=== PATIENT | male | born 1955 | race Caucasian/White ===

== ENCOUNTER → 2017-12-24 08:12 | Outpatient (CLI) | payer MEDICARE, MEDICAID, SELFPAY ==
--- NOTE | 2017-12-24 | DI.CT.S_ITS ---
PROCEDURE: CT ABDOMEN PELVIS WO/W CON INDICATIONS: Microhematuria with upper right abdominal pains TECHNIQUE: Optional 5 mm thick noncontrast images acquired from the diaphragm to the symphysis pubis. After the administration of intravenous contrast, 5 mm thick images acquired from the diaphragm to the symphysis pubis after a 10-minute delay. 2 mm thick coronal and sagittal reformats were then performed of the kidneys and ureters. For radiation dose reduction, the following was used: automated exposure control, adjustment of mA and/or kV according to patient size. COMPARISON: None. FINDINGS: Image quality: Excellent. Lung bases: There is a small 5 mm right lower lobe pulmonary nodule. Heart size is normal. Urinary system: Both kidneys are normal in size, without hydronephrosis or nephrolithiasis. There is minimal nonspecific perinephric fat stranding. A small right renal cyst is demonstrated as well as additional smaller hypoattenuating foci likely representing cysts. There is normal bilateral renal enhancement. Renal calyces appear normal in morphology when filled with contrast without suspicious filling defects. Opacified portions of both ureters demonstrate normal caliber. Bladder wall thickness is normal. No calcified bladder stones. Other solid organs: The liver is nodular in contour compatible with cirrhosis. No discrete hepatic mass lesion identified. There is a prominent calcified gallstone in the gallbladder without associated gallbladder wall thickening or pericholecystic fluid. Biliary system is non dilated. Pancreas enhances normally. Spleen is normal in size and enhancement. There is nodular thickening of the left adrenal gland measuring up to 1.2 cm with indeterminate attenuation values. Peritoneum and bowel: Bowel loops demonstrate normal wall thickness and caliber. There is colonic diverticulosis without acute diverticulitis. No free fluid or air. Nodes and vessels: No retroperitoneal or mesenteric adenopathy by size criteria. Aorta and inferior vena cava are normal in size. Abdominal wall: No ventral hernias. Pelvis: No pathologic free pelvic fluid. No inguinal hernias or adenopathy. Bones: No suspicious bony lesions. There is moderate degenerative disease at L5-S1. No vertebral body compression fractures. IMPRESSION: 1. No evidence of nephrolithiasis or suspicious filling defects within the renal collecting systems. No hydronephrosis. 2. Nodular hepatic contour compatible with cirrhosis. 3. Cholelithiasis. 4. Nonspecific mild nodular thickening of the left adrenal gland. Dictated by: Shukri Renner M.D. on 12/24/2017 at 14:47 Approved by: Suhkri Renner M.D. on 12/24/2017 at 14:56
[2017-12-24 08:54] LABS: BUN Creatinine Ratio 17.5 (6-22); Blood Urea Nitrogen 14 mg/dL (9-20); Calcium 8.5 mg/dL (8.4-10.2); Carbon Dioxide 28 mmol/L (22-32); Chloride 105 mmol/L (98-107); Estimated Glomerular Filt Rate > 60.0 mL/min (>60); Glucose 117 mg/dL (80-110); HEMOLYSIS 16 (0-50); Potassium 4.1 mmol/L (3.4-5.1); Sodium 142 mmol/L (137-145)
== END ==
PROVIDERS: Family Provider Family Medicine; PCP Family Medicine; Visit Provider Family Medicine
DX: R31.29 Other microscopic hematuria (principal); R10.11 Right upper quadrant pain; I10 Essential (primary) hypertension; K80.80 Other cholelithiasis without obstruction; K76.9 Liver disease, unspecified; E27.9 Disorder of adrenal gland, unspecified
CPT/HCPCS: 36415; 74178; 80048; Q9967

== ENCOUNTER 2018-12-17 14:50 | Inpatient (IN) | payer MEDICARE, MEDICAID, SELFPAY ==
[2018-12-17] VITALS (7 sets, daily range): BP systolic 139–193; BP diastolic 87–116; PULSE 75–117; RESP 18–26; TEMP 36.7; O2SAT 96–99; BMI 40.0
--- NOTE | 2018-12-17 15:21 | DI.RAD.S_ITS ---
PROCEDURE: XR CHEST 2V INDICATIONS: shortness of breath TECHNIQUE: 2 views of the chest were acquired. COMPARISON: [facility], , CHEST 1 VIEW, 08/11/2014, 17:00. FINDINGS: Surgical changes and devices: None. Lungs and pleura: Prominent pulmonary vascular markings are identified with perihilar interstitial prominence. No definite area of pulmonary consolidation is identified. No pleural effusions or pneumothorax. Mediastinum: Mediastinal contours are normal. Heart size is enlarged. There is aortic atherosclerosis. Bones and chest wall: No suspicious bony abnormalities. Soft tissues appear unremarkable. IMPRESSION: Cardiomegaly with associated pulmonary vasculature congestion is suspicious for developing cardiogenic pulmonary edema. Dictated by: Migue Munoz M.D. on 12/17/2018 at 15:07 Approved by: Migue Munoz M.D. on 12/17/2018 at 15:07
[2018-12-17 15:25] LABS: Add Manual Diff / Slide Review NO; Basophils Absolute Auto 100 /uL (0-100); Basophils Percent Auto 0.5 % (0-2); Eosinophils Absolute Auto 200 /uL (0-450); Eosinophils Percent Auto 2.4 % (2-4); Hematocrit 37.7 % (41-53); Lymphocytes Absolute Auto 3500 /uL (1100-4500); Lymphocytes Percent Auto 34.9 % (25-40); Mean Corpuscular HGB Conc 34.4 % (30-36); Mean Corpuscular Hemoglobin 34.6 PG (26-34); Mean Corpuscular Volume 100.5 fL (80-100); Monocytes Absolute Auto 1500 /uL (0-900); Monocytes Percent Auto 15.2 % (3-14); Neutrophils Absolute Auto 4800 /uL (1500-7000); Platelet Count 177 X10^3/uL (150-400); Red Blood Cell Count 3.75 X10^6/uL (4.5-5.9); Red Cell Distribution Width 15.2 % (11.6-14.8); White Blood Cell Count 10.2 X10^3/uL (4.5-11.0)
[2018-12-17 15:34] LABS: Alanine Aminotransferase 35 IU/L (<50); Albumin Globulin Ratio 0.6 (1.0-2.8); Alkaline Phosphatase 171 U/L (38-126); Aspartate Aminotransferase 77 IU/L (17-59); Bilirubin Total 2.1 mg/dL (0.2-1.3); Blood Urea Nitrogen 7 mg/dL (9-20); Calcium 8.2 mg/dL (8.4-10.2); Carbon Dioxide 28 mmol/L (22-32); Chloride 105 mmol/L (98-107); Estimated Glomerular Filt Rate > 60.0 mL/min (>60); Globulin 4.8 g/dL (1.7-4.1); Glucose 100 mg/dL (80-110); HEMOLYSIS < 15 (0-50); Potassium 3.6 mmol/L (3.4-5.1); Sodium 136 mmol/L (137-145); Total Protein 7.8 g/dL (6.3-8.2)
--- NOTE | 2018-12-17 15:44 | ED.SOB ---
HPI - SOB/Dyspnea General Chief Complaint: Shortness of Breath/Dyspnea Stated Complaint: difficulty breathing, bloated, swollen legs Time Seen by Provider: 12/17/18 15:14 Source: patient Mode of arrival: Wheelchair Limitations: no limitations History of Present Illness HPI Narrative: This is a 63-year-old male who comes to the emergency department with complaint of shortness of breath and swelling in his legs and abdomen. Patient states it seemed like his leg started 1st and then he developed abdominal swelling which she states is pretty extensive. He states his belly button has also been ?popped out? for several weeks. Patient states he has had infections in his legs and been on antibiotics which made the swelling better. He states the swelling in his legs is not as bad as it has been in the past. He states maybe he has had some fevers or chills but states they are mild. He does not feel short of breath when sitting still but on exertion gets quite dyspneic. He states possibly a little bit of chest 2 weeks. He describes them as short seconds of chest pain that resolves that sort of epigastric right upper quadrant in nature. Patient states that he has had some right rib pain but states he has had multiple episodes where he has fallen. He denies any abdominal pain. He denies any weeping in his lower extremities. He states he takes lisinopril, metoprolol, he was taking aspirin daily but lately has not been. He states he has been told he has gallstones in the past. Denies any prior surgery. When asked if he has had ascites he states that he has and this is why he decreased his alcohol intake. He smokes about half pack per day, occasionally drinks beer but states not every day. Marijuana but denies other illicit. He lives on [address] follows with the clinic on [address]. Related Data Home Medications Medication Instructions Recorded Confirmed bupropion HCl 100 mg PO DAILY 12/17/18 12/17/18 duloxetine 30 mg PO DAILY 12/17/18 12/17/18 lisinopril 40 mg PO DAILY 12/17/18 12/17/18 metoprolol succinate 100 mg PO DAILY 12/17/18 12/17/18 topiramate 25 mg PO BID 12/17/18 12/17/18 verapamil 120 mg PO DAILY 12/17/18 12/17/18 Previous Rx's Medication Instructions Recorded gabapentin [Neurontin] 300 mg PO BID #180 cap 04/28/16 isosorbide mononitrate 30 mg PO QAM #90 tab 04/28/16 Allergies Allergy/AdvReac Type Severity Reaction Status Date / Time No Known Drug Allergies Allergy Verified 12/17/18 15:20 Review of Systems Review of Systems ROS Unobtainable: All systems reviewed & are unremarkable except as noted in HPI and below Constitutional Constitutional: Denies body ache(s), Denies chills, Denies fever(s), Denies lethargy and Denies weakness Cardiovascular Cardiovascular: Reports chest pain, Denies syncope, Denies rapid heart rate, Reports edema (lower extremities), Denies irregular heart rhythm, Denies leg ulcers, Reports leg edema, Denies lightheadedness, Denies palpitations, Denies dyspnea, Reports dyspnea on exertion and Denies orthopnea Respiratory Respiratory: Denies change in phlegm color, Denies chest congestion, Denies cough, Denies dyspnea, Reports dyspnea on exertion and Denies wheezing Gastrointestinal Gastrointestinal: Denies abdominal pain, Denies melena, Denies hematochezia, Denies change in bowel habits, Denies diarrhea, Denies nausea, Denies vomiting and Reports other (distended.) Genitourinary Genitourinary: Denies hematuria, Denies difficulty urinating, Denies dysuria, Denies flank pain, Denies urinary frequency, Denies urinary incontinence and Denies urinary urgency Integumentary/Breasts Skin/Breast: Reports erythema (right leg, not as bad as usual.) Neurologic Neurologic: Denies syncope and Denies weakness Endocrine Endocrine: Denies palpitations Allergic/Immunologic Allergic/Immunologic: Denies wheezing Patient History Medical History (Updated 12/17/18 @ 21:46 by ANDREW Ramos) Alcohol abuse (Chronic 03/02/15) Ascites (Acute) Essential hypertension (Chronic 03/02/15) Fluid overload (Acute) Tobacco abuse (Chronic 03/02/15) Social History household members: none Smoking Status: Current some day smoker alcohol intake frequency: holidays/special occasions only Substance Use Type: marijuana Exam Narrative Exam Narrative: GENERAL: Alert and oriented x three, obese male smelling strongly of cigarette smoke. Patient is in mild distress. HEENT: Head normocephalic, atraumatic, EOMI, pupils reactive, face symmetric, moist mucous membranes NECK: Supple, full range of motion CARDIOVASCULAR: Regular rate and rhythm without murmurs, rubs or gallops. RESPIRATORY: Breath sounds equal bilaterally, no wheezes rales or rhonchi. ABDOMEN: Abdomen is nontender. Patient is distended but soft with umbilical hernia/umbilicus external, it is soft, non-tender and easily reducible, no caput noted. Normoactive bowel sounds all 4 quadrants. No guarding or rebound, rigidity, no mass : No CVA tenderness EXTREMITIES: Normal range of motion, patient has 2+ edema bilteral lower extremities. No weeping. Neurovascularly intact NEUROLOGICAL: Cranial nerves II through XII grossly intact. Moving all extremities SKIN: Warm, dry, no petechiae, patient has erythema of right lower extremity extending from the foot/ankle up to thigh. No erythema extending into the right groin or abdomen. Initial Vital Signs Initial Vital Signs: Vital Signs Pulse Rate 117 H 12/17/18 14:50 Respiratory Rate 26 H 12/17/18 14:50 Blood Pressure 193/105 H 12/17/18 14:50 Pulse Oximetry 97 12/17/18 14:50 Course Orders Ordered: Enoxaparin Sodium (Lovenox) 40 mg SUBCUT DAILY [facility] Furosemide (Lasix) 40 mg IV DAILY ONE Stop: 12/18/18 09:01 Isosorbide Mononitrate (Imdur) 30 mg PO DAILY@0700 [facility] Last Admin: 12/18/18 06:59 Dose: 30 mg Documented by: TRACY Lisinopril (Zestril) 40 mg PO DAILY [facility] Metoprolol Succinate (Toprol Xl) 100 mg PO DAILY [facility] Ondansetron HCl (Zofran) 4 mg IV Q8HR PRN PRN Reason: Nausea And Vomiting Sodium Chloride (Normal Saline 0.9% Flush) 10 ml IV PRN PRN PRN Reason: Flush Last Admin: 12/18/18 04:14 Dose: 10 ml Documented by: TRACY Sodium Chloride (Normal Saline 0.9% Flush) 10 ml IV BID [facility] Verapamil HCl (Verapamil Er) 120 mg PO DAILY [facility] Discontinued Medications Furosemide (Lasix) 40 mg IV NOW ONE Stop: 12/17/18 16:03 Last Admin: 12/17/18 16:10 Dose: 40 mg Documented by: CRISTINA Lisinopril (Zestril) 40 mg PO NOW ONE Stop: 12/17/18 18:23 Last Admin: 12/17/18 18:47 Dose: 40 mg Documented by: CRISTINA Metoprolol Tartrate (Lopressor) 100 mg PO NOW ONE Stop: 12/17/18 18:23 Last Admin: 12/17/18 18:48 Dose: 100 mg Documented by: CRISTINA Nitroglycerin (Nitro-Bid) 0.5 inch TOP NOW ONE Stop: 12/17/18 16:03 Last Admin: 12/17/18 16:10 Dose: 0.5 inch Documented by: CRISTINA Vital Signs Vital signs: Vital Signs - 8 hr 12/17/18 14:50 12/17/18 16:10 12/17/18 16:32 Pulse Rate 117 H 105 H 105 H Respiratory Rate 26 H 22 Blood Pressure 193/105 H 186/113 H Blood Pressure [Right Arm] 139/116 H Pulse Oximetry 97 99 12/17/18 18:14 Pulse Rate 106 H Respiratory Rate 23 Blood Pressure Blood Pressure [Right Arm] 179/106 H Pulse Oximetry 96 MDM - SOB/Dyspnea Lab Data Attestation: I reviewed the patient's lab results. Result diagrams: 12/18/18 06:13 12/18/18 06:13 Labs: Lab Results 12/17/18 12/17/18 12/17/18 Range/Units 15:00 15:00 15:00 WBC 10.2 (4.5-11.0) X10^3/uL RBC 3.75 L (4.5-5.9) X10^6/uL Hgb 13.0 L (13.5-17.5) g/dL Hct 37.7 L (41-53) % MCV 100.5 H (80-100) fL MCH 34.6 H (26-34) PG MCHC 34.4 (30-36) % RDW 15.2 H (11.6-14.8) % Plt Count 177 (150-400) X10^3/uL Neut % (Auto) 47.0 L (50-75) % Lymph % (Auto) 34.9 (25-40) % Dougherty % (Auto) 15.2 H (3-14) % Eos % (Auto) 2.4 (2-4) % Baso % (Auto) 0.5 (0-2) % Neut # (Auto) 4800 (5257-7421) /uL Lymph # (Auto) 3500 (6644-6862) /uL Dougherty # (Auto) 1500 H (0-900) /uL Eos # (Auto) 200 (0-450) /uL Baso # (Auto) 100 (0-100) /uL Sodium 136 L (137-145) mmol/L Potassium 3.6 (3.4-5.1) mmol/L Chloride 105 (98-107) mmol/L Carbon Dioxide 28 (22-32) mmol/L BUN 7 L (9-20) mg/dL Creatinine 0.70 (0.66-1.25) mg/dL Estimated GFR > 60.0 (>60) mL/min BUN/Creatinine Ratio 10.0 (6-22) Glucose 100 (80-110) mg/dL Hemoglobin A1c (4.0-6.0) % Calcium 8.2 L (8.4-10.2) mg/dL Total Bilirubin 2.1 H (0.2-1.3) mg/dL AST 77 H (17-59) IU/L ALT 35 (<50) IU/L Alkaline Phosphatase 171 H (38-126) U/L Ammonia (9-30) umol/L Total Creatine Kinase 99 (55-170) U/L CK-MB (CK-2) TNP CK-MB (CK-2) Rel Index TNP Troponin I 0.025 (0.01-0.034) ng/mL B-Natriuretic Peptide (<100) Total Protein 7.8 (6.3-8.2) g/dL Albumin 3.0 L (3.5-5.0) g/dL Globulin 4.8 H (1.7-4.1) g/dL Albumin/Globulin Ratio 0.6 L (1.0-2.8) Lipase (23-300) U/L Procalcitonin (<0.5) ng/mL 12/17/18 12/17/18 12/17/18 Range/Units 15:00 15:00 15:00 WBC (4.5-11.0) X10^3/uL RBC (4.5-5.9) X10^6/uL Hgb (13.5-17.5) g/dL Hct (41-53) % MCV (80-100) fL MCH (26-34) PG MCHC (30-36) % RDW (11.6-14.8) % Plt Count (150-400) X10^3/uL Neut % (Auto) (50-75) % Lymph % (Auto) (25-40) % Dougherty % (Auto) (3-14) % Eos % (Auto) (2-4) % Baso % (Auto) (0-2) % Neut # (Auto) (5731-5834) /uL Lymph # (Auto) (7568-4824) /uL Dougherty # (Auto) (0-900) /uL Eos # (Auto) (0-450) /uL Baso # (Auto) (0-100) /uL Sodium (137-145) mmol/L Potassium (3.4-5.1) mmol/L Chloride (98-107) mmol/L Carbon Dioxide (22-32) mmol/L BUN (9-20) mg/dL Creatinine (0.66-1.25) mg/dL Estimated GFR (>60) mL/min BUN/Creatinine Ratio (6-22) Glucose (80-110) mg/dL Hemoglobin A1c (4.0-6.0) % Calcium (8.4-10.2) mg/dL Total Bilirubin (0.2-1.3) mg/dL AST (17-59) IU/L ALT (<50) IU/L Alkaline Phosphatase (38-126) U/L Ammonia (9-30) umol/L Total Creatine Kinase (55-170) U/L CK-MB (CK-2) CK-MB (CK-2) Rel Index Troponin I (0.01-0.034) ng/mL B-Natriuretic Peptide < 100 (<100) Total Protein (6.3-8.2) g/dL Albumin (3.5-5.0) g/dL Globulin (1.7-4.1) g/dL Albumin/Globulin Ratio (1.0-2.8) Lipase 145 (23-300) U/L Procalcitonin < 0.05 (<0.5) ng/mL 12/17/18 12/17/18 Range/Units 16:23 17:00 WBC (4.5-11.0) X10^3/uL RBC (4.5-5.9) X10^6/uL Hgb (13.5-17.5) g/dL Hct (41-53) % MCV (80-100) fL MCH (26-34) PG MCHC (30-36) % RDW (11.6-14.8) % Plt Count (150-400) X10^3/uL Neut % (Auto) (50-75) % Lymph % (Auto) (25-40) % Dougherty % (Auto) (3-14) % Eos % (Auto) (2-4) % Baso % (Auto) (0-2) % Neut # (Auto) (1911-8495) /uL Lymph # (Auto) (0001-4098) /uL Dougherty # (Auto) (0-900) /uL Eos # (Auto) (0-450) /uL Baso # (Auto) (0-100) /uL Sodium (137-145) mmol/L Potassium (3.4-5.1) mmol/L Chloride (98-107) mmol/L Carbon Dioxide (22-32) mmol/L BUN (9-20) mg/dL Creatinine (0.66-1.25) mg/dL Estimated GFR (>60) mL/min BUN/Creatinine Ratio (6-22) Glucose (80-110) mg/dL Hemoglobin A1c 4.7 (4.0-6.0) % Calcium (8.4-10.2) mg/dL Total Bilirubin (0.2-1.3) mg/dL AST (17-59) IU/L ALT (<50) IU/L Alkaline Phosphatase (38-126) U/L Ammonia < 9.0 L (9-30) umol/L Total Creatine Kinase (55-170) U/L CK-MB (CK-2) CK-MB (CK-2) Rel Index Troponin I (0.01-0.034) ng/mL B-Natriuretic Peptide (<100) Total Protein (6.3-8.2) g/dL Albumin (3.5-5.0) g/dL Globulin (1.7-4.1) g/dL Albumin/Globulin Ratio (1.0-2.8) Lipase (23-300) U/L Procalcitonin (<0.5) ng/mL Imaging Data Chest x-ray: Radiologist's impression: [address] [id number] XRay Report Signed Patient: Beto Cruz CMR#: [id number] : 4Acct:[id number] Age/Sex: 63 / MDate of Service: 12/17/18 Loc: ED Accession Number: [id number] Procedure: XR chest 2V Ordering Provider: Ngoc Hopper D.O. PROCEDURE: XR CHEST 2V INDICATIONS: shortness of breath TECHNIQUE: 2 views of the chest were acquired. COMPARISON: [facility], CR, CHEST 1 VIEW, 08/11/2014, 17:00. FINDINGS: Surgical changes and devices: None. Lungs and pleura: Prominent pulmonary vascular markings are identified with perihilar interstitial prominence. No definite area of pulmonary consolidation is identified. No pleural effusions or pneumothorax. Mediastinum: Mediastinal contours are normal. Heart size is enlarged. There is aortic atherosclerosis. Bones and chest wall: No suspicious bony abnormalities. Soft tissues appear unremarkable. IMPRESSION: Cardiomegaly with associated pulmonary vasculature congestion is suspicious for developing cardiogenic pulmonary edema. Dictated by: Migue Munoz M.D. on 12/17/2018 at 15:07 Approved by: Migue Munoz M.D. on 12/17/2018 at 15:07 US - abdomen: Radiologist's impression: [address] [id number] Ultrasound Report Signed Patient: Beto Cruz CMR#: [id number] : 4Acct:[id number] Age/Sex: 63 / MDate of Service: 12/17/18 Loc: ED Accession Number: [id number] Procedure: US abdomen limited Ordering Provider: Ngoc Hopper D.O. PROCEDURE: US ABDOMEN LIMITED INDICATIONS: ABDOMINAL/LOWER EXTREMITY SWELLING, ?ASCITES TECHNIQUE: Real-time focused scanning was performed of the abdomen, with image documentation. COMPARISON: [facility], CT, CT ABDOMEN PELVIS WO/W CON, 12/24/2017, 9:03. FINDINGS: There is a moderate amount of upper abdominal ascites, best appreciated within the region of the liver. The liver and spleen appear to be mildly enlarged. IMPRESSION: Moderate abdominal ascites. Dictated by: Migue Munoz M.D. on 12/17/2018 at 15:57 Approved by: Migue Munoz M.D. on 12/17/2018 at 15:57 ECG Data Attestation: I personally reviewed and interpreted this ECG as follows: Prior ECG tracings: available for review Interpretation: Sinus tachycardia rate of 112 P are 161 QRS of 91 and QTC of 407. No ST elevation or depression appreciated. MDM Narrative Medical decision making narrative: Patient comes in with bilateral lower extremity swelling, redness in his right lower extremity low does not warm. Patient also has extensive swelling of his abdomen with his umbilicus protruding secondary to fluid overload/ascites. Patient fluid overload may have fluid overload secondary to CHF althought bnp is less than 100 although CXR shows some pulm edema and cardiomegaly. Patient does have moderate ascites on US but less than I would expect based on habitus. Right leg has erythema but patient has been afebrile, procalcitonin is negative with normal wbc. Patient states he still drinks alcohol but decreased his intake secondary to liver issues, patient does not appear in extremis. Started on lasix, nitropaste placed as patient is quite hypertensive. Case discussed with Dr. Madden, she requests patient to be given normal lisinopril and metoprolol dose, accepts for observation. Discharge Plan Departure Patient Disposition: Admitted as Observation Clinical Impression: Ascites, Fluid overload Discharge Date/Time: 12/17/18 19:24 Admit Date/Time: 12/17/18 18:30 Admit Provider: Fadia Madden
--- NOTE | 2018-12-17 16:08 | DI.US.S_ITS ---
PROCEDURE: US ABDOMEN LIMITED INDICATIONS: ABDOMINAL/LOWER EXTREMITY SWELLING, ?ASCITES TECHNIQUE: Real-time focused scanning was performed of the abdomen, with image documentation. COMPARISON: [facility], CT, CT ABDOMEN PELVIS WO/W DIDI, 12/24/2017, 9:03. FINDINGS: There is a moderate amount of upper abdominal ascites, best appreciated within the region of the liver. The liver and spleen appear to be mildly enlarged. IMPRESSION: Moderate abdominal ascites. Dictated by: Migue Munoz M.D. on 12/17/2018 at 15:57 Approved by: Migue Munoz M.D. on 12/17/2018 at 15:57
[2018-12-17] MEDS: NITROGLYCERIN OINT 1 INCH/GM OINT...G. 0.5 INCH TOP (16:10)
[2018-12-17] MEDS: FUROSEMIDE 40 MG/4 ML VIAL IV (16:10)
[2018-12-17 16:16] LABS: Creatine Kinase 99 U/L (55-170)
--- NOTE | 2018-12-17 16:23 | PC.NURSE ---
reports that he stopped taking his medications since they made him feel bad. states that his abdomen has become recently swollen and his belly button is popping out. reports that he is retaining fluid in his lower extremities. lower extremities are swollen and red.
[2018-12-17 16:29] LABS: Troponin I 0.025 ng/mL (0.01-0.034)
[2018-12-17 16:33] LABS: B Type Natriuretic Peptide < 100 (<100)
[2018-12-17 16:49] LABS: Ammonia (NH3) < 9.0 umol/L (9-30)
[2018-12-17 16:51] LABS: Procalcitonin < 0.05 ng/mL (<0.5)
[2018-12-17] MEDS: LISINOPRIL 20 MG TABLET 40 MG PO (18:47)
[2018-12-17] MEDS: METOPROLOL IR 25 MG TABLET 100 MG PO (18:48)
[2018-12-17 21:07] LABS: Lipase 145 U/L (23-300)
--- NOTE | 2018-12-17 21:09 | P.HP_ITS ---
History of Present Illness History of Present Illness Date Patient Seen: 12/17/18 Time Patient Seen: 20:30 Chief complaint: difficulty breathing, bloated, swollen legs Narrative: Beto Cruz is a 63 y.o. male with hypertension and what appears to be depression presented today for increased abdominal girth and shortness of breath. He is suspected of having liver ascites. Patient is a vague historian and per the ED and in my questioning does not remember if he is taking his medications. Stated his stomach blew up on Thursday of this week and that his umbilicus popped out. Describes having right sided intermittent needle like pain in his right chest which has since resolved. Endorses a history of strokes in the past that he was never seen for and informed the ED that he has never been told he has gall bladder disease. Denies current shortness of breath, abdominal pain, nausea or vomiting, dyurea or diarrhea. He states some of his medications cause constipation. He also endorses bilateral feet pain and swelling. Patient goes to the clinic on [address] and does not recall seeing anyone regularly there. Patient History Medical History (Updated 12/17/18 @ 21:46 by ANDREW Ramos) Alcohol abuse (Chronic 03/02/15) Ascites (Acute) Essential hypertension (Chronic 03/02/15) Fluid overload (Acute) Tobacco abuse (Chronic 03/02/15) Family & Social History Social History: household members none Prior Living Arrangements RV Safety & Behavioral: Feels Safe in Current Yes Environment Been Physically Hurt or No Threatened By a Person Suicidal Ideation Description None Tobacco & Substance use: Smoking Status 0.5 ppd smoker alcohol intake frequency holiday/special occasion Substance Use Type marijuana Meds Home Medications and Allergies Home Medications Medication Instructions Recorded Confirmed Type gabapentin [Neurontin] 300 mg PO BID #180 cap 04/28/16 12/17/18 Rx isosorbide mononitrate 30 mg PO QAM #90 tab 04/28/16 12/17/18 Rx bupropion HCl 100 mg PO DAILY 12/17/18 12/17/18 History duloxetine 30 mg PO DAILY 12/17/18 12/17/18 History lisinopril 40 mg PO DAILY 12/17/18 12/17/18 History metoprolol succinate 100 mg PO DAILY 12/17/18 12/17/18 History topiramate 25 mg PO BID 12/17/18 12/17/18 History verapamil 120 mg PO DAILY 12/17/18 12/17/18 History Allergies Allergy/AdvReac Type Severity Reaction Status Date / Time No Known Drug Allergies Allergy Verified 12/17/18 15:20 Review of Systems Review of Systems ROS Unobtainable: All systems reviewed & are unremarkable except as noted in HPI and below Exam Vital Signs (past 8 hours): - 12/17/18 14:50 12/17/18 16:10 12/17/18 16:32 Temperature Pulse Rate 117 H 105 H 105 H Respiratory Rate 26 H 22 Blood Pressure 193/105 H 186/113 H Blood Pressure [Right Arm] 139/116 H Pulse Oximetry 97 99 12/17/18 18:14 12/17/18 18:32 12/17/18 18:47 Temperature Pulse Rate 106 H 106 H 105 H Respiratory Rate 23 23 Blood Pressure 163/90 H Blood Pressure [Right Arm] 179/106 H 163/90 H Pulse Oximetry 96 96 12/17/18 19:30 Temperature 98.1 F Pulse Rate 75 Respiratory Rate 18 Blood Pressure 147/87 H Blood Pressure [Right Arm] Pulse Oximetry 97 Oxygen Delivery Method Room Air Narrative Exam Narrative: Gen: Alert, oriented, obese 63 y.o. male, appears ill HEENT: normocephalic, atraumatic, conjunctiva clear, scleral icteris, oral mucosa pink and moist Neck: supple, full ROM Resp: Lungs CTA, non-labored breathing CV: RRR, no murmur or rubs Abd: distended, hard, hypoactive BTs, non-tender Skin: +2 edema of the lower extremities, no lesions or rashes, dry and intact Neuro: Alert and oriented X 4 w/no focal deficits Extremities: moves all 4 extremities, is ambulatory, negative Jesi?s sign Psyche: normal mood and affect Objective Labs Result Diagrams: 12/17/18 15:00 12/17/18 15:00 Labs: Laboratory Results - last 24 hr 12/17/18 12/17/18 12/17/18 15:00 15:00 15:00 WBC 10.2 RBC 3.75 L Hgb 13.0 L Hct 37.7 L MCV 100.5 H MCH 34.6 H MCHC 34.4 RDW 15.2 H Plt Count 177 Neut % (Auto) 47.0 L Lymph % (Auto) 34.9 [place] % (Auto) 15.2 H Eos % (Auto) 2.4 Baso % (Auto) 0.5 Neut # (Auto) 4800 Lymph # (Auto) 3500 [place] # (Auto) 1500 H Eos # (Auto) 200 Baso # (Auto) 100 Sodium 136 L Potassium 3.6 Chloride 105 Carbon Dioxide 28 BUN 7 L Creatinine 0.70 Estimated GFR > 60.0 BUN/Creatinine Ratio 10.0 Glucose 100 Calcium 8.2 L Total Bilirubin 2.1 H AST 77 H ALT 35 Alkaline Phosphatase 171 H Ammonia Total Creatine Kinase 99 CK-MB (CK-2) TNP CK-MB (CK-2) Rel Index TNP Troponin I 0.025 B-Natriuretic Peptide Total Protein 7.8 Albumin 3.0 L Globulin 4.8 H Albumin/Globulin Ratio 0.6 L Lipase Procalcitonin 12/17/18 12/17/18 12/17/18 15:00 15:00 15:00 WBC RBC Hgb Hct MCV MCH MCHC RDW Plt Count Neut % (Auto) Lymph % (Auto) [place] % (Auto) Eos % (Auto) Baso % (Auto) Neut # (Auto) Lymph # (Auto) [place] # (Auto) Eos # (Auto) Baso # (Auto) Sodium Potassium Chloride Carbon Dioxide BUN Creatinine Estimated GFR BUN/Creatinine Ratio Glucose Calcium Total Bilirubin AST ALT Alkaline Phosphatase Ammonia Total Creatine Kinase CK-MB (CK-2) CK-MB (CK-2) Rel Index Troponin I B-Natriuretic Peptide < 100 Total Protein Albumin Globulin Albumin/Globulin Ratio Lipase 145 Procalcitonin < 0.05 12/17/18 16:23 WBC RBC Hgb Hct MCV MCH MCHC RDW Plt Count Neut % (Auto) Lymph % (Auto) [place] % (Auto) Eos % (Auto) Baso % (Auto) Neut # (Auto) Lymph # (Auto) [place] # (Auto) Eos # (Auto) Baso # (Auto) Sodium Potassium Chloride Carbon Dioxide BUN Creatinine Estimated GFR BUN/Creatinine Ratio Glucose Calcium Total Bilirubin AST ALT Alkaline Phosphatase Ammonia < 9.0 L Total Creatine Kinase CK-MB (CK-2) CK-MB (CK-2) Rel Index Troponin I B-Natriuretic Peptide Total Protein Albumin Globulin Albumin/Globulin Ratio Lipase Procalcitonin Assessment & Plan Assessment & Plan narrative: Beto Nancy will be held in observation to further assess his abdominal ascites. 1. Abdominal ascites vs CHF, acute, present on admission * Consider US guided abdominal paracentesis * BNP was normal * ETOH level normal * Acute hepatitis panel pending * Holding gabapentin, buproprion, and duloxetine due to potential hepatotoxic effect 2. Bilateral LE edema, acute, present on admission * He received IV lasix in the ED * Scheduled for IV lasix 40 mg in the am 3. Essential hypertension, chronic and uncontrolled, present on admission * Home doses of isosorbide mononitrate 30 mg po daily, lisinopril 40 mg po daily, verapamil 120 mg po daily and metoprolol succinate 100 mg po daily were admistered in the ED and will be continued 3. History of hyperglycemia * Patient previously diagnosed w/diabetes, have ordered an A1c, last one done Patient is admitted obsevation as his stay is not anticipated to exceed 2 midnights. FEN: Saline lock, cardiac diet, CMP in the am. VTE Prophylaxis: Enoxaparin 40 mg subQ daily Disposition: Unknown at this time Code status: Full code Time Spent With Patient Time with patient: 15-24 minutes Quality VTE Deep Vein Thrombosis/Pulmonary Embolism Present on Admission: No
[2018-12-17 22:25] LABS: Hemoglobin A1C% w Est Avg Glu 4.7 % (4.0-6.0)
--- NOTE | 2018-12-17 23:41 | PC.NURSE ---
Evening Shift Note- Patient arrived to room from ER via wheelchair. Admit questions completed, meds reviewed, physical assessment done. Patient oriented to bed and bed controls, room, lights, phone, menu, and call horvath/tv remote. Safety measures in place. bed alarm activated. patient agrees to call for assistance as needed. will continue to monitor.
[2018-12-18] VITALS (10 sets, daily range): BP systolic 93–143; BP diastolic 50–73; PULSE 63–73; RESP 13–22; TEMP 36.2–37.3; O2SAT 91–97
[2018-12-18] MEDS: SODIUM CHLORIDE 0.9% FLUSH 10 ML IV ×4 (04:14→21:43)
[2018-12-18 06:48] LABS: Add Manual Diff / Slide Review NO; Basophils Absolute Auto 100 /uL (0-100); Basophils Percent Auto 1.3 % (0-2); Eosinophils Absolute Auto 500 /uL (0-450); Eosinophils Percent Auto 4.7 % (2-4); Hematocrit 34.1 % (41-53); Hemoglobin 11.7 g/dL (13.5-17.5); Lymphocytes Absolute Auto 4700 /uL (1100-4500); Lymphocytes Percent Auto 44.3 % (25-40); Mean Corpuscular HGB Conc 34.4 % (30-36); Mean Corpuscular Hemoglobin 34.7 PG (26-34); Mean Corpuscular Volume 100.7 fL (80-100); Monocytes Absolute Auto 1600 /uL (0-900); Monocytes Percent Auto 15.1 % (3-14); Neutrophils Absolute Auto 3700 /uL (1500-7000); Neutrophils Percent Auto 34.6 % (50-75); Platelet Count 161 X10^3/uL (150-400); Red Blood Cell Count 3.39 X10^6/uL (4.5-5.9); Red Cell Distribution Width 14.5 % (11.6-14.8); White Blood Cell Count 10.7 X10^3/uL (4.5-11.0)
[2018-12-18 06:54] LABS: INR 1.4 (0.9-1.3); Prothrombin Time 16.3 SECONDS (10.1-12.7)
[2018-12-18] MEDS: ISOSORBIDE MONONITRATE ER 30 MG TABLET PO (06:59)
[2018-12-18 07:02] LABS: Alanine Aminotransferase 27 IU/L (<50); Albumin 2.3 g/dL (3.5-5.0); Albumin Globulin Ratio 0.6 (1.0-2.8); Alkaline Phosphatase 111 U/L (38-126); Aspartate Aminotransferase 57 IU/L (17-59); Bilirubin Total 1.9 mg/dL (0.2-1.3); Blood Urea Nitrogen 9 mg/dL (9-20); Calcium 7.7 mg/dL (8.4-10.2); Carbon Dioxide 28 mmol/L (22-32); Chloride 105 mmol/L (98-107); Cholesterol 84 mg/dL (140-199); Estimated Glomerular Filt Rate > 60.0 mL/min (>60); Globulin 3.9 g/dL (1.7-4.1); Glucose 93 mg/dL (80-110); HDL Cholesterol 23 mg/dL (40-60); HEMOLYSIS < 15 (0-50); LDL Cholesterol Calculated 48 mg/dL (<100); Potassium 3.3 mmol/L (3.4-5.1); Sodium 137 mmol/L (137-145); Total Protein 6.2 g/dL (6.3-8.2); Triglycerides 64 mg/dL (35-150)
--- NOTE | 2018-12-18 07:19 | DI.ECHO.S_ITS ---
[facility]---------+ [facility] +---------+ : : [address] [place] : : : : [id number] : : : : Phone: [phone]+ Echocardiogram Report + + :Name: SUGAR ROBERTS Study Date: 12/18/2018 Height: 72 in : :[facility] Weight: 287 lb : : Gender: Male BSA: 2.5 m2 : :: 1955 Age: 63 yrs BP: 115/51 mmHg: :Reason For Study: SOB : :Ordering Physician: Felipe : :Hospitalist Performed By: Jeana Lane : :Referring: JABARI RIOS : + + Interpretation Summary The left ventricle is normal in size. The ejection fraction is estimated to be 60-65%. There are no obvious focal wall motion abnormalities noted but poor endocardial definition reduces the sensitivity for the detection of such. Diastolic parameters suggest probable normal left ventricular diastolic function and normal filling pressures. The right ventricle grossly appears normal in size with probable normal systolic function. Right ventricular systolic pressure is estimated to be 23 mmHg plus the clinically estimated CVP which cannot be estimated on this exam. The left atrium is borderline dilated. The right atrium is mildly dilated. There is no significant valvular heart disease. The aortic root is normal size. Procedure: A two-dimensional transthoracic echocardiogram with color flow and Doppler was performed. The study quality was technically difficult. A contrast injection of Definity was performed to improve assessment of LV function. There is no prior echocardiogram noted for this patient. The patient was in normal sinus rhythm during the exam. Left Ventricle: The left ventricle is normal in size. Left ventricular wall thickness is mildly increased. The ejection fraction is estimated to be 60- 65%. There are no obvious focal wall motion abnormalities noted but poor endocardial definition reduces the sensitivity for the detection of such. Diastolic parameters suggest probable normal left ventricular diastolic function and normal filling pressures. Right Ventricle: The right ventricle grossly appears normal in size with probable normal systolic function. Atria: The left atrium is borderline dilated. The right atrium is mildly dilated. Mitral Valve: The mitral valve is grossly normal. There appears to be a trivial mitral regurgitant jet. Aortic Valve: The aortic valve is not well visualized. The aortic valve is grossly normal. There is no aortic valve stenosis. No aortic regurgitation is present. Tricuspid Valve: The tricuspid valve is not well visualized, but is grossly normal. There is a trace or physiologic amount of tricuspid regurgitation. Right ventricular systolic pressure is estimated to be 23 mmHg plus the clinically estimated CVP which cannot be estimated on this exam. Pulmonic Valve: The pulmonic valve is not well seen, but is grossly normal. There is no significant valvular heart disease. Great Vessels: The aortic root is normal size. The ascending aorta is at the upper limits of normal in size. The aortic arch could not be visualized. The inferior vena cava was not well visualized. The IVC has a measurement of 20 mm. CVP cannot be reliably estimated due to inspiratory collapse of the IVC not well seen. Pericardium/ Pleura There is no pericardial effusion. Abdominal ascites is noted. MMode/2D Measurements & Calculations LVIDd: 5.3 cm LVOT diam: 2.2 cm IVSd: 1.2 cm Ao root diam: 3.3 cm LVPWd: 1.3 cm Aortic Jxn: 2.8 cm LV barrera. diameter/BSA (cm/m^2): 2.1 asc Aorta Diam: 3.4 cm LA A2 area: 21.6 cm2 RA long axis: 5.7 cm LA A4 area: 26.6 cm2 RA area: 24.1 cm2 LA length (vol): 5.7 cm RA vol: 86.7 ml LA vol: 85.6 ml RA : 34.9 ml/m2 LA vol index: 34.4 ml/m2 IVC diam: 2.0 cm Doppler Measurements & Calculations Ao V2 max: 127.8 cm/sec LVOT Max Chava: 75.9 cm/sec Ao V2 mean: 92.2 cm/sec LV V1 max P.3 mmHg Ao max P.5 mmHg LV V1 VTI: 20.1 cm Ao mean P.6 mmHg FANNY(I,D): 2.8 cm2 Ao V2 VTI: 27.6 cm FANNY(V,D): 2.3 cm2 sev ratio: 0.73 FANNY indexed to BSA (cm^2/m^2): 1.1 MV E max chava: 90.5 cm/sec TR max chava: 240.3 cm/sec MV A max chava: 91.6 cm/sec TR max P.1 mmHg MV E/A: 0.99 PA V2 max: 86.2 cm/sec Med Peak E' Chava: 7.0 cm/sec PA V2 mean: 55.0 cm/sec E/E' med: 12.9 PA mean P.4 mmHg Lat Peak E' Chava: 7.6 cm/sec PA Accel Time: 0.08 sec E/E' lat: 11.9 E/e' average: 12.4 MV dec time: 0.25 sec MV P1/2t: 72.2 msec MV P1/2t max chava: 91.0 cm/sec SV(LVOT): 76.8 ml MVA(P1/2t): 3.0 cm2 Reading Physician:02:29 PM
[2018-12-18] MEDS: METOPROLOL ER 50 MG TABLET 100 MG PO (08:52)
[2018-12-18] MEDS: ENOXAPARIN 40 MG/0.4 ML SYRINGE SUBCUT (08:52)
[2018-12-18] MEDS: LISINOPRIL 20 MG TABLET 40 MG PO (08:53)
[2018-12-18] MEDS: FUROSEMIDE 40 MG/4 ML VIAL IV ×2 (08:53→16:59)
[2018-12-18] MEDS: POTASSIUM CHLORIDE 20 MEQ TAB 40 MEQ PO ×2 (08:53→17:00)
[2018-12-18] MEDS: VERAPAMIL SR 120 MG TABLET PO (08:55)
--- NOTE | 2018-12-18 11:55 | PC.NURSE ---
1130 Pt resting in bed, ECHO being done now.
--- NOTE | 2018-12-18 12:00 | PM.PN.1 ---
Subjective Subjective Date Patient Seen: 12/18/18 Interval history: Beto Cruz is a 63-year-old male with a past medical history significant for hypertension, depression, peripheral neuropathy and liver cirrhosis who presented for massive ascites and shortness of breath. The patient is resting in bed comfortably. He reports that his abdominal ascites developed overnight which prompted him to be evaluated yesterday in the ED. I inquired regarding whether he has ever received a paracentesis of his abdomen or not for which he denies. He does however report that he has had a thoracentesis previously. His shortness of breath has improved with diuresis. His abdomen is still quiet large with ascites. He denies headache, chest pain, abdominal pain, nausea (although had some this morning), vomiting, fever, chills, dysuria, diarrhea or constipation. He is voiding and eliminating without difficulty. He is up ambulating without assistance. Exam Vital Signs (past 8 hours): - 12/18/18 08:10 12/18/18 08:30 12/18/18 12:25 Temperature 97.2 F L 97.8 F Pulse Rate 64 70 Respiratory Rate 15 13 Blood Pressure 115/51 L 106/57 L Pulse Oximetry 97 96 97 Oxygen Delivery Method Room Air Oxygen Flow Rate 0 Narrative Exam Narrative: General: Older gentleman lying in bed and in no acute distress, appears chronically ill and older than stated age, well-developed, well-nourished, appropriately interactive. HEENT: Normocephalic, atraumatic. External ears without defect. Pupils equal, round, and reactive to light. Anicteric sclerae, moist conjunctivae, and no lid lag. Neck: Supple with full range of motion. No jugular venous distension. No lymphadenopathy or thyromegaly. Cardiovascular: Regular rate and rhythm without murmurs, rubs, or gallops appreciated. Pulmonary: Clear to auscultation bilaterally without crackles, wheezes, or rhonchi. Normal respiratory effort with no use of accessory muscles. Abdomen: Taut, positive fluid wave, tympanic, nontender. No hepatosplenomegaly or masses appreciated. Extremities: No clubbing or cyanosis. Mild pitting edema to knees bilaterally. Skin: Normal temperature, turgor, and texture; no rash, ulcers, or subcutaneous nodules appreciated. Palmar erythema and telangiectasias of face present. No other stigmata of liver disease including asterixis, spider angiomata, or caput medusae. Neurological: Cranial nerves grossly intact. Psychiatric: Poor insight. Normal mood and affect. Alert and oriented to person, place, and time. Objective Labs Result Diagrams: 12/18/18 06:13 12/18/18 06:13 Labs: Laboratory Results - last 24 hr 12/17/18 12/17/18 12/17/18 15:00 15:00 15:00 WBC RBC Hgb Hct MCV MCH MCHC RDW Plt Count Neut % (Auto) Lymph % (Auto) [place] % (Auto) Eos % (Auto) Baso % (Auto) Neut # (Auto) Lymph # (Auto) [place] # (Auto) Eos # (Auto) Baso # (Auto) PT INR Sodium 136 L Potassium 3.6 Chloride 105 Carbon Dioxide 28 BUN 7 L Creatinine 0.70 Estimated GFR > 60.0 BUN/Creatinine Ratio 10.0 Glucose 100 Hemoglobin A1c Calcium 8.2 L Total Bilirubin 2.1 H AST 77 H ALT 35 Alkaline Phosphatase 171 H Ammonia Total Creatine Kinase 99 CK-MB (CK-2) TNP CK-MB (CK-2) Rel Index TNP Troponin I 0.025 B-Natriuretic Peptide Total Protein 7.8 Albumin 3.0 L Globulin 4.8 H Albumin/Globulin Ratio 0.6 L Triglycerides Cholesterol LDL Cholesterol, Calc HDL Cholesterol Lipase Procalcitonin < 0.05 12/17/18 12/17/18 12/17/18 15:00 15:00 16:23 WBC RBC Hgb Hct MCV MCH MCHC RDW Plt Count Neut % (Auto) Lymph % (Auto) [place] % (Auto) Eos % (Auto) Baso % (Auto) Neut # (Auto) Lymph # (Auto) [place] # (Auto) Eos # (Auto) Baso # (Auto) PT INR Sodium Potassium Chloride Carbon Dioxide BUN Creatinine Estimated GFR BUN/Creatinine Ratio Glucose Hemoglobin A1c Calcium Total Bilirubin AST ALT Alkaline Phosphatase Ammonia < 9.0 L Total Creatine Kinase CK-MB (CK-2) CK-MB (CK-2) Rel Index Troponin I B-Natriuretic Peptide < 100 Total Protein Albumin Globulin Albumin/Globulin Ratio Triglycerides Cholesterol LDL Cholesterol, Calc HDL Cholesterol Lipase 145 Procalcitonin 12/17/18 12/18/18 12/18/18 17:00 06:13 06:13 WBC 10.7 RBC 3.39 L Hgb 11.7 L Hct 34.1 L MCV 100.7 H MCH 34.7 H MCHC 34.4 RDW 14.5 Plt Count 161 Neut % (Auto) 34.6 L Lymph % (Auto) 44.3 H [place] % (Auto) 15.1 H Eos % (Auto) 4.7 H Baso % (Auto) 1.3 Neut # (Auto) 3700 Lymph # (Auto) 4700 H [place] # (Auto) 1600 H Eos # (Auto) 500 H Baso # (Auto) 100 PT 16.3 H INR 1.4 H Sodium Potassium Chloride Carbon Dioxide BUN Creatinine Estimated GFR BUN/Creatinine Ratio Glucose Hemoglobin A1c 4.7 Calcium Total Bilirubin AST ALT Alkaline Phosphatase Ammonia Total Creatine Kinase CK-MB (CK-2) CK-MB (CK-2) Rel Index Troponin I B-Natriuretic Peptide Total Protein Albumin Globulin Albumin/Globulin Ratio Triglycerides Cholesterol LDL Cholesterol, Calc HDL Cholesterol Lipase Procalcitonin 12/18/18 06:13 WBC RBC Hgb Hct MCV MCH MCHC RDW Plt Count Neut % (Auto) Lymph % (Auto) [place] % (Auto) Eos % (Auto) Baso % (Auto) Neut # (Auto) Lymph # (Auto) [place] # (Auto) Eos # (Auto) Baso # (Auto) PT INR Sodium 137 Potassium 3.3 L Chloride 105 Carbon Dioxide 28 BUN 9 Creatinine 0.60 L Estimated GFR > 60.0 BUN/Creatinine Ratio 15.0 Glucose 93 Hemoglobin A1c Calcium 7.7 L Total Bilirubin 1.9 H AST 57 ALT 27 Alkaline Phosphatase 111 D Ammonia Total Creatine Kinase CK-MB (CK-2) CK-MB (CK-2) Rel Index Troponin I B-Natriuretic Peptide Total Protein 6.2 L Albumin 2.3 L Globulin 3.9 Albumin/Globulin Ratio 0.6 L Triglycerides 64 Cholesterol 84 L LDL Cholesterol, Calc 48 HDL Cholesterol 23 L Lipase Procalcitonin Assessment & Plan Assessment & Plan narrative: Beto Cruz is a 63-year-old male with a past medical history significant for hypertension, depression, peripheral neuropathy and liver cirrhosis who presented for massive ascites and shortness of breath. 1. Acute decompensated alcoholic liver cirrhosis with massive ascites, likely secondary to alcohol dependence, present on admission. Active. -Patient presented with third spacing with massive ascites, peripheral edema and shortness of breath. -Liver function impaired with INR 1.4 and albumin 2.3. Platelets low normal at 161. Patient denies history of previous ascites or hepatic encephalopathy. Patient reports significant rectal bleeding recently possibly due to varices? MELD 14. Child Valadez Class C. -Previous CT abdomen and pelvis with contrast in 12/2017 demonstrated nodular hepatic contour compatible with cirrhosis. -Abdominal ultrasound demonstrated moderate amount of upper abdominal ascites. -Echocardiogram unremarkable and demonstrated normal LV size and function with EF 60-65%, no focal wall motion abnormalities, normal diastolic function, RVSP 23 mmHg, left atrium is borderline dilated, right atrium is mildly dilated, no significant valvular heart disease, and aortic root is normal size. -Alcohol level normal. Patient reports his last drink was a beer he had 4 days ago. -Ordered acute hepatitis panel which is a send out and pending. Patient has history of previous IV drug use. -Discontinued buproprion and duloxetine due to hepatotoxicity. -Received furosemide 40 mg IV x1 in ED. Continue furosemide 40 mg IV at 0800 and 1700. Ordered albumin 25 g IV x1 with furosemide dose to help mobilize fluid. Plan to place patient 2:1 spironolactone and furosemide prior to discharge. -Continue strict I&O and daily weights with diuresis. Net -2 L. -Continue low-sodium diet less than 2 g daily and fluid restriction of 1.5 L. -Continue to monitor electrolytes closely and replete as necessary. -Ordered ultrasound-guided paracentesis which is unable to be performed on the weekends unless emergent. -Recommended outpatient referral to hepatology for further evaluation and treatment. 2. Acute hypokalemia, present on admission. Active. -Initial potassium 3.6. Potassium trended down to 3.3 with diuresis. Ordered potassium chloride 40 mEq twice daily with meals as actively diuresing. 3. Hypertension, chronic and uncontrolled, present on admission. Stable. -Patient initially significantly hypertensive in ED with blood pressure 193/105 and received nitropaste with improvement. -Continue home isosorbide mononitrate 30 mg daily, lisinopril 40 mg daily, verapamil 120 mg daily and metoprolol succinate 100 mg daily. 4. Depression, chronic, present on admission. Stable. -Patient previously on bupropion and duloxetine which are hepatotoxic, contraindicated with hepatic impairment and have been discontinued indefinitely. 5. Peripheral neuropathy, secondary to alcohol use, present on admission. Stable. -Continue gabapentin 300 mg twice daily. Discontinued topiramate due to decreased clearance in hepatic impairment. 6. Diabetes mellitus type II ruled out. Disposition: Patient likely to discharge home in several days once ascites has improved. Quality VTE Deep Vein Thrombosis/Pulmonary Embolism Present on Admission: No
[2018-12-18 16:19] LABS: Magnesium 1.8 mg/dL (1.6-2.3)
[2018-12-18] MEDS: ALBUMIN HUMAN 25 GM/100 ML VIAL IV (17:00)
[2018-12-18 21:15] LABS: Alanine Aminotransferase 25 IU/L (<50); Albumin 2.4 g/dL (3.5-5.0); Albumin Globulin Ratio 0.6 (1.0-2.8); Alkaline Phosphatase 103 U/L (38-126); Aspartate Aminotransferase 53 IU/L (17-59); BUN Creatinine Ratio 14.4 (6-22); Bilirubin Total 1.7 mg/dL (0.2-1.3); Blood Urea Nitrogen 13 mg/dL (9-20); Calcium 7.8 mg/dL (8.4-10.2); Carbon Dioxide 30 mmol/L (22-32); Chloride 105 mmol/L (98-107); Estimated Glomerular Filt Rate > 60.0 mL/min (>60); Globulin 3.8 g/dL (1.7-4.1); Glucose 113 mg/dL (80-110); HEMOLYSIS < 15 (0-50); Potassium 3.8 mmol/L (3.4-5.1); Sodium 137 mmol/L (137-145); Total Protein 6.2 g/dL (6.3-8.2)
[2018-12-19] VITALS (11 sets, daily range): BP systolic 113–164; BP diastolic 61–85; PULSE 69–77; RESP 15–20; TEMP 36.6–37.7; O2SAT 94–98
[2018-12-19 01:30] LABS: Magnesium 1.8 mg/dL (1.6-2.3)
[2018-12-19] MEDS: SODIUM CHLORIDE 0.9% FLUSH 10 ML IV ×5 (01:40→21:27)
--- NOTE | 2018-12-19 02:07 | PC.NURSE ---
Pt ordered for STAT magnesium level, result is 1.8. Provider notified, no orders needed at this time. Pt reporting chronic back pain. I fell off a roof 20yrs ago and my vertebrae are sticking out. Rates 8/10, restless in bed and unable to sleep. Provider notified and one time order given for Toradol 30mg IV. Will administer and reassess for effectiveness.
[2018-12-19] MEDS: KETOROLAC 30 MG/ML VIAL IV (02:51)
[2018-12-19] MEDS: ISOSORBIDE MONONITRATE ER 30 MG TABLET PO (06:07)
[2018-12-19 06:12] LABS: Add Manual Diff / Slide Review NO; Basophils Absolute Auto 0 /uL (0-100); Basophils Percent Auto 0.4 % (0-2); Eosinophils Absolute Auto 600 /uL (0-450); Hematocrit 32.4 % (41-53); Hemoglobin 11.1 g/dL (13.5-17.5); Lymphocytes Absolute Auto 4400 /uL (1100-4500); Mean Corpuscular HGB Conc 34.3 % (30-36); Mean Corpuscular Hemoglobin 35.1 PG (26-34); Mean Corpuscular Volume 102.1 fL (80-100); Monocytes Absolute Auto 1400 /uL (0-900); Monocytes Percent Auto 14.2 % (3-14); Neutrophils Absolute Auto 3200 /uL (1500-7000); Neutrophils Percent Auto 33.4 % (50-75); Platelet Count 150 X10^3/uL (150-400); Red Blood Cell Count 3.18 X10^6/uL (4.5-5.9); Red Cell Distribution Width 14.9 % (11.6-14.8); White Blood Cell Count 9.6 X10^3/uL (4.5-11.0)
[2018-12-19 06:16] LABS: INR 1.4 (0.9-1.3); Prothrombin Time 16.7 SECONDS (10.1-12.7)
[2018-12-19 06:22] LABS: HEMOLYSIS < 15 (0-50); Potassium 3.4 mmol/L (3.4-5.1)
[2018-12-19 06:23] LABS: Alanine Aminotransferase 26 IU/L (<50); Albumin 2.3 g/dL (3.5-5.0); Albumin Globulin Ratio 0.6 (1.0-2.8); Alkaline Phosphatase 106 U/L (38-126); Aspartate Aminotransferase 54 IU/L (17-59); BUN Creatinine Ratio 16.3 (6-22); Bilirubin Total 1.5 mg/dL (0.2-1.3); Blood Urea Nitrogen 13 mg/dL (9-20); Calcium 7.7 mg/dL (8.4-10.2); Carbon Dioxide 28 mmol/L (22-32); Chloride 108 mmol/L (98-107); Estimated Glomerular Filt Rate > 60.0 mL/min (>60); Globulin 3.7 g/dL (1.7-4.1); Glucose 94 mg/dL (80-110); Magnesium 1.8 mg/dL (1.6-2.3); Sodium 139 mmol/L (137-145)
--- NOTE | 2018-12-19 08:12 | CM.IDA ---
Initial DCP Assessment Note/Brief: Pt is a 63 yo male, resident of [place]. Pt admitted w/abdominal ascites. Pt is reportedly a heavy drinker and an [employer] consult has been requested for CD Assessment. PCP: [facility] Payer: Medicare/Medicaid Reviewed chart. Met w/pt and explained SW role yesterday, brief visit, Dr Madden in to start her visit soon after this [employer] arrived. Pt lying in bed, CATA Silva states pt sleeping most of the day. Pt's answers are mostly one word, he does not elaborate. Pt lives in a motor home on [address] and states it's okay. This [employer] will attempt reassessment today if able. Pt is scheduled to remain here at least until Thursday when a radiologist can tap his belly, prog note today indicates pt can DC home once abd ascites has improved. ISABELA Dodd
--- NOTE | 2018-12-19 09:00 | P.PN_ITS ---
Subjective Subjective Date Patient Seen: 12/19/18 Interval history: Beto Cruz is a 63-year-old male with a past medical history significant for hypertension, depression, peripheral neuropathy and liver cirrhosis who presented for massive ascites and shortness of breath. The patient is resting in bed comfortably. The patient has poor insight and does not seem to comprehend the gravity or severity of his disease process. The patient denies shortness of breath but does feel his breathing is shallow and impaired due to massive ascites. His abdomen is uncomfortable and unchanged (may be even more distended) from yesterday. He denies headache, chest pain, abdominal pain, nausea, vomiting, fever, chills, dysuria, diarrhea or constipation. He is voiding and eliminating without difficulty. He is up ambulating with 1 person assistance. Exam Vital Signs (past 8 hours): - 12/19/18 04:00 Temperature 97.9 F Pulse Rate 71 Respiratory Rate 16 Blood Pressure 141/73 H Pulse Oximetry 96 Oxygen Delivery Method Room Air Oxygen Flow Rate 0 Narrative Exam Narrative: General: Older gentleman lying in bed and in no acute distress, appears chronically ill and older than stated age, well-developed, well-nourished, mild cognitive impairment versus early dementia but otherwise appropriately interactive. HEENT: Normocephalic, atraumatic. External ears without defect. Pupils equal, round, and reactive to light. Anicteric sclerae, moist conjunctivae, and no lid lag. Neck: Supple with full range of motion. No jugular venous distension. No lymphadenopathy or thyromegaly. Cardiovascular: Regular rate and rhythm without murmurs, rubs, or gallops appreciated. Pulmonary: Clear to auscultation bilaterally without crackles, wheezes, or rhonchi. Normal respiratory effort with no use of accessory muscles. Abdomen: Taut with umbilicus extruding externally due to massive ascites, ty mpanic, nontender. Unable to appreciate bowel sounds. No hepatosplenomegaly or masses appreciated. Extremities: No clubbing or cyanosis. Mild bipedal pitting edema. Skin: Normal temperature, turgor, and texture; no rash, ulcers, or subcutaneous nodules appreciated. Palmar erythema and telangiectasias of face present. No other stigmata of liver disease including asterixis, spider angiomata, or caput medusae. Neurological: Cranial nerves grossly intact. Psychiatric: Poor insight. Normal mood and affect. Alert and oriented to person, place, and time. Mild cognitive impairment versus early dementia with short-term memory impairment. Objective Labs Result Diagrams: 12/19/18 05:58 12/19/18 05:58 Labs: Laboratory Results - last 24 hr 12/18/18 12/18/18 12/19/18 06:40 20:55 01:12 PST WBC RBC Hgb Hct MCV MCH MCHC RDW Plt Count Neut % (Auto) Lymph % (Auto) [place] % (Auto) Eos % (Auto) Baso % (Auto) Neut # (Auto) Lymph # (Auto) [place] # (Auto) Eos # (Auto) Baso # (Auto) PT INR Sodium 137 Potassium 3.8 Chloride 105 Carbon Dioxide 30 BUN 13 Creatinine 0.90 Estimated GFR > 60.0 BUN/Creatinine Ratio 14.4 Glucose 113 H Calcium 7.8 L Magnesium 1.8 1.8 Total Bilirubin 1.7 H AST 53 ALT 25 Alkaline Phosphatase 103 Total Protein 6.2 L Albumin 2.4 L Globulin 3.8 Albumin/Globulin Ratio 0.6 L 12/19/18 12/19/18 12/19/18 05:58 05:58 05:58 WBC 9.6 RBC 3.18 L Hgb 11.1 L Hct 32.4 L MCV 102.1 H MCH 35.1 H MCHC 34.3 RDW 14.9 H Plt Count 150 Neut % (Auto) 33.4 L Lymph % (Auto) 46.0 H [place] % (Auto) 14.2 H Eos % (Auto) 6.0 H Baso % (Auto) 0.4 Neut # (Auto) 3200 Lymph # (Auto) 4400 [place] # (Auto) 1400 H Eos # (Auto) 600 H Baso # (Auto) 0 PT 16.7 H INR 1.4 H Sodium 139 Potassium 3.4 Chloride 108 H Carbon Dioxide 28 BUN 13 Creatinine 0.80 Estimated GFR > 60.0 BUN/Creatinine Ratio 16.3 Glucose 94 Calcium 7.7 L Magnesium 1.8 Total Bilirubin 1.5 H AST 54 ALT 26 Alkaline Phosphatase 106 Total Protein 6.0 L Albumin 2.3 L Globulin 3.7 Albumin/Globulin Ratio 0.6 L Assessment & Plan Assessment & Plan narrative: Beto Cruz is a 63-year-old male with a past medical history significant for hypertension, depression, peripheral neuropathy and liver cirrhosis who presented for massive ascites and shortness of breath. 1. Acute decompensated alcoholic liver cirrhosis with massive ascites, present on admission. Active. -Patient presented with third spacing with massive ascites, peripheral edema and shortness of breath. -Liver function impaired with INR 1.4 and albumin 2.3. Platelets low normal at 161. Patient denies history of previous ascites or hepatic encephalopathy. Patient reports significant rectal bleeding recently possibly due to varices? MELD decreased from initial 14 to 12. Child Valadez Class C. -Previous CT abdomen and pelvis with contrast in 12/2017 demonstrated nodular hepatic contour compatible with cirrhosis. -Abdominal ultrasound demonstrated moderate amount of upper abdominal ascites. -Echocardiogram unremarkable and demonstrated normal LV size and function with EF 60-65%, no focal wall motion abnormalities, normal diastolic function, RVSP 23 mmHg, left atrium is borderline dilated, right atrium is mildly dilated, no significant valvular heart disease, and aortic root is normal size. -Alcohol level normal. Patient reports his last drink was a beer he had 4 days ago. He reports he plans to abstain from alcohol. -Ordered acute hepatitis panel which is a send out and pending. Patient has history of previous IV drug use. -Discontinued buproprion and duloxetine due to hepatotoxicity. -Continue strict I&O and daily weights with diuresis. Net -2 L. -Continue low-sodium diet less than 2 g daily and fluid restriction of 1.5 L. -Continue to monitor electrolytes closely and replete as necessary. -Received furosemide 40 mg IV x1 in ED. Continue diuresis and plan for paracentesis tomorrow which is unable to be performed on the weekends unless emergent. Discontinued furosemide 40 mg IV twice daily which he received for 2 days. Started 2:1 spironolactone 100 mg daily and furosemide 40 mg daily to treat ascites and will need to be titrated to effect as an outpatient. Also ordered additional IV diuresis this afternoon with furosemide 40 mg IV x1 with albumin 25 g IV x1 to help mobilize fluid off abdomen as patient is uncomfortable. -Recommended outpatient referral to hepatology for further evaluation and treatment. 2. Acute hypokalemia, present on admission. Active. -Initial potassium 3.6. Potassium trended down to 3.3 with diuresis. Ordered potassium chloride 40 mEq twice daily with meals while receiving IV diuresis. -Started spironolactone as above which is potassium sparing. 3. Hypertension, chronic and uncontrolled, present on admission. Stable. -Patient initially significantly hypertensive in ED with blood pressure 193/105 and received nitropaste with improvement. -Continue home isosorbide mononitrate 30 mg daily, lisinopril 40 mg daily, and metoprolol succinate 100 mg daily. -Started and plan to continue 2:1 spironolactone and furosemide to treat ascites as above. -Discontinued verapamil 120 mg daily as blood pressure is controlled with the above medications. 4. Depression, chronic, present on admission. Stable. -Patient previously on bupropion and duloxetine which are hepatotoxic, contraindicated with hepatic impairment and have been discontinued indefinitely. 5. Peripheral neuropathy, secondary to alcohol use, present on admission. Stable. -Continue gabapentin 300 mg twice daily. Discontinued topiramate due to dec reased clearance in hepatic impairment. -Ordered physical and occupational therapy evaluation treatment, pending. 6. Diabetes mellitus type II ruled out. -Hemoglobin A1c 4.6% Disposition: Patient will have paracentesis performed tomorrow and may possibly discharge home with home health versus intermediate facility for rehabilitation. Quality VTE Deep Vein Thrombosis/Pulmonary Embolism Present on Admission: No
[2018-12-19] MEDS: ENOXAPARIN 40 MG/0.4 ML SYRINGE SUBCUT (09:17)
[2018-12-19] MEDS: LISINOPRIL 20 MG TABLET 40 MG PO (09:18)
[2018-12-19] MEDS: POTASSIUM CHLORIDE 20 MEQ TAB 40 MEQ PO ×2 (09:21→16:27)
[2018-12-19] MEDS: FUROSEMIDE 40 MG TABLET PO (09:21)
--- NOTE | 2018-12-19 11:40 | PT.IIE ---
Medical History (Last Updated 12/17/18 @ 21:46 by ANDREW Ramos) Alcohol abuse (Chronic 03/02/15) Ascites (Acute) Essential hypertension (Chronic 03/02/15) Fluid overload (Acute) Tobacco abuse (Chronic 03/02/15) Physical Therapy Inpatient Evaluation/Re-Eval M1 PT/OT-IP Prior Functional Status Start: 12/19/18 08:12 Freq: NEEDED Status: Active Protocol: Document 12/19/18 11:07 AW (Rec: 12/19/18 11:40 AW [id number]) Medical Review Prior Functional Status Medical History Reviewed Yes Communication Able to make needs known Mobility and Gait Pt reports independent ambulation for household distances with no assistive device. He notes that his RV is too small for a walker and that he tends to cruise countertops, furniture, and lopes. Activities of Daily Living and IADL's Independent per pt report Prior Functional Level (Other details) Pt endorses multiple falls in the past year. He states his mobility has decreased over the past month or so and that he spends a lot of time lying down. Social History Household Members none Living Arrangements RV Number of Floors (Floors) One Floor Number of Stairs To Enter/Railing? 3 TERI without railing. Pt states he holds on to the door or to a refrigerator which sits next to the stairs. Home Environment Standard Height Toilet,Tub/ Shower Home Equipment Straight Cane,Crutches,Grab Bars In Shower Additional Social History Comment Pt prefers to live alone and describes himself as a loner by choice. M2 PT-IP Current Condition Start: 12/19/18 08:12 Freq: NEEDED Status: Active Protocol: Document 12/19/18 11:07 AW (Rec: 12/19/18 11:40 AW [id number]) Physical Therapy Current Condition Current Condition Evaluation Date 12/19/18 Treatment Diagnosis abd asites, difficulty in walking Onset Date 12/18/18 Precautions Other Precautions high falls risk Weight Bearing Status Weight Bearing Status Full Weight Bearing M3 PT-IP Subjective Start: 12/19/18 08:12 Freq: NEEDED Status: Active Protocol: Document 12/19/18 11:07 AW (Rec: 12/19/18 11:40 AW [id number]) Subjective Physical Therapy Visit Type Type Initial Evaluation Visit Start Time 10:34 Visit Stop Time 11:01 Total Visit Minutes 27 Number of INFORMATION SUPPORT PROJECT MANAGER Visits 0 Physical Therapy Visit Comments Patient Comments Pt is pleasant, happy to work with therapy Patient Goals Pt wishes to return home Therapy Pain Assessment Pain When Pain Assessed During Mobility Pain Present Pain Present Denied Pain M4 PT-IP Mobility and Gait Start: 12/19/18 08:12 Freq: NEEDED Status: Active Protocol: Document 12/19/18 11:07 AW (Rec: 12/19/18 11:40 AW [id number]) PT-Bed Mobility Assessment Sit to Supine Sit to Supine Standby Assistance Scooting Scooting to Edge of Bed Standby Assistance Scooting Up and Down in Bed Independent PT-Transfer Assessment Sit to and From Stand Sit to and from Stand Standby Assistance Equipment Transfer Assistive Device None,Gait Belt,Front Wheeled Walker Orthotic/Prosthetic Devices or Brace: No Transfers Transfer Destination Bed Transfer Technique pt ambulated with FWW Transfer Ability Level of Assist Standby Assistance Comments Mobility Comments Pt required SBA for sit <> stand transfers. First attempt was with FWW. Second rep was without AD. There was no difference in level of assist required. Gait Assessment Gait Gait Assistance Required: Contact Guard Assist Distance (Feet) 140 Able to Maintain Weight Bearing Status Yes During Gait Assistive Devices Assistive Device None,Gait Belt,Front Wheeled Walker Orthotic/Prosthetic Devices or Brace: No Gait Deviations General Gait Pattern Antalgic,Decreased Stride Length,Flexed Trunk,Wide Based Gait Factors Limiting Gait Function Factors Limiting Gait Function Decreased Activity Tolerance, Decreased Sensation,Decreased Strength,Poor Balance,Poor Safety Awareness,Respiratory Distress Comments Gait Comments Pt demonstrated wide base of support and bilateral foot drop in gait both with and without FWW. CGA required for all ambulation. Pt needed cues to slow down and to breathe deeply. After ~80 feet ambulation without AD, pt required a standing rest break due to fatigue. Pt unable to perform head turns or changes in gait speed without significant path deviation. BP at rest was 148/72. BP after ambultion was 167/73. RN was notified. Stair Climbing Assessment Evaluation Level of Assist On Stairs Standby Assistance,Contact Guard Assistance Devices Stair Climbing Assistive Devices Left Railing,Right Railing Technique/Endurance Stair Climbing Direction Ascend and Descend Stair Climbing Technique Step Over Step Number of Steps Climbed 3 Query Text: Stair Climbing Set # Repetitions (reps) 2 Comments Stair Climbing Comments Pt required SBA first rep when using bilateral rails. Second rep using no rails required CGA due to increased unsteadiness. PT-Balance Assessment Sitting Balance and Reactions Static Sitting Balance Ability Good Dynamic Sitting Balance Ability Good Standing Balance and Reactions Static Standing Balance Ability Fair Dynamic Standing Balance Ability Fair Device Used FWW M5 PT-IP Objective Assessments Start: 12/19/18 08:12 Freq: NEEDED Status: Active Protocol: Document 12/19/18 11:07 AW (Rec: 12/19/18 11:40 AW [id number]) Orientation Orientation/Cognition Level of Alertness Alert Orientation Name,Day of Week,Place, Situation Language Function Ability No Deficits Noted Safety Awareness Decreased Safety Awareness Memory Description No Deficits Noted Gross Range of Motion Upper Extremity ROM Assessment Within Functional Limits Lower Extremity ROM Assessment Left Impaired Impairments left ankle fusion Strength Upper Extremity Strength Assessment Within Functional Limits Lower Extremity Strength Assessment Bilaterally Impaired Hip 4/5 Knee 5/5 Ankle 4/5 Coordination Assessment Gross Coordination Gross Coordination WNL Sensation Assessment Sensation Gross Sensation Right LE Impaired,Left LE Impaired Light Touch Impaired Comments Sensation Comments Impaired light touch sensation in bilateral LE's up to knee joint. M6 PT-IP Treatment Start: 12/19/18 08:12 Freq: NEEDED Status: Active Protocol: Document 12/19/18 11:07 AW (Rec: 12/19/18 11:40 AW [id number]) Physical Therapy Treatment Education Education Provided Precautions,Safety M7 PT-IP Assessment and Plan Start: 12/19/18 08:12 Freq: NEEDED Status: Active Protocol: Document 12/19/18 11:07 AW (Rec: 12/19/18 11:40 AW [id number]) PT Summary Assessment and Plan Potential Rehabilitation Potential Good Status of Condition at Evaluation Evolving Summary Impairments Strength,Balance,Sensation,Bed Mobility,Transfers,Gait, Activity Tolerance Assessment Summary Pt is a 63 yo man with history of alcohol dependence, HTN, and peripheral neuropathy currently admitted with abdominal ascites. PLOF: Pt reports limited household ambulation which has recently declined. He used no assistive device, stating canes made it worse. He endorses use of countertops, furniture, and lopes for balance in the home. CLOF: Pt required SBA for all bed mobility and transfers, CGA for ambulation with and without AD, CGA for stairs. Informal dynamic gait testing indicated increased falls risk due to inability to turn head or to change gait speed without significant path deviation/loss of balance. Pt notes he has been to SNF rehab before and will not go back. PT recommends SNF rehab at discharge vs home with home health therapy. Goals Bed Mobility Goal Independent Transfer Goal Independent Gait Goal Standby Assistance,Front Wheel Walker Gait Distance 150 Other Goals up/down 3 steps without railing SBA Days to Meet Goals 10 Frequency of Treatment Frequency Of Treatment Once a Day Treatment Plan Physical Therapy Treatment Plan Bed Mobility Training,Transfer Training,Gait Training, Therapeutic Exercise,Balance Retraining,Discharge Planning, Hot or Cold Pack,Neuromuscular Re-ed,Coordination Retraining ,Manual Therapy Other Recommendations and Next Treatment trial alternative assistive Focus devices if appropriate, repeat stair training Recommendations To Nursing Amount of Assist Needed 1 Person Assist Discharge Recommendations PT Discharge Recommendations Home,Home Health,SNF Rehab
[2018-12-19] MEDS: METOPROLOL ER 50 MG TABLET 100 MG PO (12:38)
[2018-12-19] MEDS: SPIRONOLACTONE 50 MG TABLET 100 MG PO (12:38)
--- NOTE | 2018-12-19 16:16 | CM.DANOTE ---
DCP assessment: EMR reviewed: patient is a 63 yr old male admitted to IP for abdominal Ascites. Patients PCP is Dr. Johnson. CM met with patient at bedside and explained CM role. Patient was Alert and oriented x3 at the time of meeting and is completely I at baseline. Patient currently lives alone in a mobile home on [address]. Patient stated he was brought to the ED here from his Dr. Office where his truck still is. Patient was concerned about his trailer since he lives alone and left his propane heaters running. PT evaluation stated patient can go home with HH patient is currently a 1 person assist and lives alone. Patient states he does not drink regularly he stated in the last 30 days he has had 5 beers. Patient does use Marijuana but denies all other illicit drug usage. CM asked patient if he was interested in having HH services? patient stated he doesn't feel he needs them. CM explained that having some assistance when going home might be useful fo his recovery. Patient stated he was not interested. CM will leave note with SW/DCP for tomorrow 12/20/2018 to recheck with patient about HH. Patient has a Paracentesis scheduled for tomorrow 12/20/2018 and might D/C home after that. Insurance: Medicare, 2nd: Medicaid. Plan: To D/C home when medically stable. Barriers to D/C will be getting patient home. Patient lives on [address] in a mobile home and patients truck is located on [address] at patients providers office. Patient doesn't have family or friends who can transport patient back home. D/C planning department will f/u with patient tomorrow 12/20/2018 to determine if patient would like HH. As well as work on transportation needs to the [facility] and then to his truck on [address]. Dalila Modi RN Discharge Planning/Care Management CM Discharge Assessment Start: 12/19/18 16:11 Freq: Status: Active Protocol: Document 12/19/18 16:11 HS (Rec: 12/19/18 16:16 HS [id number]) Discharge Planning Assessment Assigned Wrapper Stripper Dalila Modi RN DPOA/Assigned Designee Name Edison Palma (brother) Contact Information [phone] Advance Directives? No History Provided By Patient Has Patient been admitted in last 30 No days? Prior Living Arrangements RV Comment Patients RV is on [address] . Household Members none Type of transporation used prior to Drives own vehicle admit Independent with ADL's Yes Is patient alert and oriented? Yes Caregiver for Another No DME Already Rented / Owned FWW / Walker Discharge Plan Home Transportation Arrangement patient does not have his truck here in [place] it is located on [address] at MD office. Whiteboard Updated in Patient Room with Yes name and ext. # of Wrapper Stripper Review Status In Process Next Review Type Continued Stay Review
[2018-12-19] MEDS: FUROSEMIDE 40 MG/4 ML VIAL IV (16:26)
[2018-12-19] MEDS: ALBUMIN HUMAN 25 GM/100 ML VIAL IV (16:27)
--- NOTE | 2018-12-19 21:28 | PC.NURSE ---
Addendum entered by Soco Armstrong R.N. 12/19/18 21:52: INFORMATICS ANALYST notified this field underwriter that earlier this evening pt attempted to get out of bed, set bed alarm off and voided small amt of urine on floor. Pt cleaned up and returned to bed with bed alarm on. Reminded pt to call staff prior to getting up for fall prevention. Original Note: Assumed care of pt at 1500. Pt resting in bed during bedside hand-off. Denies SOB during rest. Denies pain or discomfort. Lasix and Albumin administered per orders. BP parameters verified with pharmacy prior to administration. BP increased post administration of Albumin. Hospitalist notified. No new orders. Calling appropriately for needs. Bed and chair alarm used at all times.
[2018-12-20] VITALS (16 sets, daily range): BP systolic 119–146; BP diastolic 60–76; PULSE 64–68; RESP 16–25; TEMP 36.8–37.2; O2SAT 95–97
[2018-12-20] MEDS: SODIUM CHLORIDE 0.9% FLUSH 10 ML IV ×2 (00:35→08:26)
[2018-12-20] MEDS: LIDOCAINE PATCH 1 EACH ADH..PATCH TOP (06:03)
[2018-12-20] MEDS: ISOSORBIDE MONONITRATE ER 30 MG TABLET PO (06:14)
[2018-12-20 06:36] LABS: INR 1.4 (0.9-1.3)
[2018-12-20 06:41] LABS: Alanine Aminotransferase 28 IU/L (<50); Albumin 2.7 g/dL (3.5-5.0); Albumin Globulin Ratio 0.7 (1.0-2.8); Alkaline Phosphatase 122 U/L (38-126); Aspartate Aminotransferase 65 IU/L (17-59); BUN Creatinine Ratio 17.1 (6-22); Bilirubin Total 1.4 mg/dL (0.2-1.3); Blood Urea Nitrogen 12 mg/dL (9-20); Calcium 8.1 mg/dL (8.4-10.2); Carbon Dioxide 26 mmol/L (22-32); Chloride 107 mmol/L (98-107); Estimated Glomerular Filt Rate > 60.0 mL/min (>60); Globulin 4.1 g/dL (1.7-4.1); Glucose 91 mg/dL (80-110); HEMOLYSIS 24 (0-50); Magnesium 1.7 mg/dL (1.6-2.3); Potassium 3.7 mmol/L (3.4-5.1); Sodium 139 mmol/L (137-145); Total Protein 6.8 g/dL (6.3-8.2)
--- NOTE | 2018-12-20 06:41 | PC.NURSE ---
Pt reported back pain 8/10 overnight. Restless, not able to sleep. Per pt 20yr history back pain I fell off a roof. Provider notified, order for lidocaine given, placed on low mid back. On tele NSR. Abd remains markedly distended with ascites. Plan for paracentesis today. Fall precautions reinforced, pt needs freq fall precautions reminders.
--- NOTE | 2018-12-20 07:15 | DI.US.S_ITS ---
PROCEDURE: US ABDOMEN LIMITED INDICATIONS: ASCITES TECHNIQUE: Real-time focused scanning was performed of the abdomen, with image documentation. COMPARISON: [facility], , US ABDOMEN LIMITED, 12/17/2018, 16:25. FINDINGS: There is a moderate amount of ascites. IMPRESSION: Moderate amount ascites. A paracentesis site was marked. Dictated by: Lori Candelario M.D. on 12/20/2018 at 11:55 Approved by: Lori Candelario M.D. on 12/20/2018 at 11:56
[2018-12-20] MEDS: LISINOPRIL 20 MG TABLET 40 MG PO (08:21)
[2018-12-20] MEDS: METOPROLOL ER 50 MG TABLET 100 MG PO (08:21)
[2018-12-20] MEDS: SPIRONOLACTONE 50 MG TABLET 100 MG PO (08:23)
[2018-12-20] MEDS: FUROSEMIDE 40 MG TABLET PO (08:23)
[2018-12-20] MEDS: POTASSIUM CHLORIDE 20 MEQ TAB 40 MEQ PO (08:24)
--- NOTE | 2018-12-20 09:57 | PT.IPTN ---
Current Diagnoses Other ascites (12/18/18) Physical Therapy Treatment Note M2 PT-IP Current Condition Start: 12/19/18 08:12 Freq: NEEDED Status: Active Protocol: Document 12/19/18 11:07 AW (Rec: 12/19/18 11:40 AW [id number]) Physical Therapy Current Condition Current Condition Evaluation Date 12/19/18 Treatment Diagnosis abd asites, difficulty in walking Onset Date 12/18/18 Precautions Other Precautions high falls risk Weight Bearing Status Weight Bearing Status Full Weight Bearing M3 PT-IP Subjective Start: 12/19/18 08:12 Freq: NEEDED Status: Active Protocol: Document 12/20/18 09:57 DLM (Rec: 12/20/18 11:09 DLM [id number]) Subjective Physical Therapy Visit Type Type Treatment Note Visit Start Time 09:30 Visit Stop Time 09:57 Total Visit Minutes 27 Number of IN STORE DEMONSTRATOR Visits 0 Physical Therapy Visit Comments Patient Comments He is worried about his house and not having friends to check on it. Patient Goals Pt wishes to return home Therapy Pain Assessment Pain When Pain Assessed After Treatment Pain Present Pain Present Denied Pain M4 PT-IP Mobility and Gait Start: 12/19/18 08:12 Freq: NEEDED Status: Active Protocol: Document 12/20/18 09:57 DLM (Rec: 12/20/18 11:09 DLM [id number]) PT-Bed Mobility Assessment Rolling Type of Rolling Roll to Left Level of Assist Independent Supine to Sit Supine to Sit Independent Sit to Supine Sit to Supine Independent Scooting Scooting to Edge of Bed Independent PT-Transfer Assessment Sit to and From Stand Sit to and from Stand Standby Assistance Equipment Transfer Assistive Device None,Gait Belt,Front Wheeled Walker Transfers Transfer Destination Bed Transfer Technique Stand Step Pivot Transfer Ability Level of Assist Standby Assistance Comments Mobility Comments impulsive, he prefers not to use the fWW Gait Assessment Gait Gait Assistance Required: Standby Assistance Distance (Feet) 140 Assistive Devices Assistive Device Gait Belt,Front Wheeled Walker Gait Deviations General Gait Pattern Wide Based Gait Factors Limiting Gait Function Factors Limiting Gait Function Decreased Activity Tolerance, Decreased Sensation,Poor Safety Awareness Comments Gait Comments he ambulated short distance in room without device but holds end of bed, ambulated in the garay with FWW, he needs a lot of encouragement to use the FWW, his need for support on the fWW increased with his distance, no losses of balance noted with head turns with UE support on FWW, he needs cuing to slow down his pace of gait to improve safety PT-Balance Assessment Sitting Balance and Reactions Static Sitting Balance Ability Good Dynamic Sitting Balance Ability Good Standing Balance and Reactions Static Standing Balance Ability Fair Dynamic Standing Balance Ability Fair Device Used FWW M5 PT-IP Objective Assessments Start: 12/19/18 08:12 Freq: NEEDED Status: Active Protocol: Document 12/19/18 11:07 AW (Rec: 12/19/18 11:40 AW [id number]) Orientation Orientation/Cognition Level of Alertness Alert Orientation Name,Day of Week,Place, Situation Language Function Ability No Deficits Noted Safety Awareness Decreased Safety Awareness Memory Description No Deficits Noted Gross Range of Motion Upper Extremity ROM Assessment Within Functional Limits Lower Extremity ROM Assessment Left Impaired Impairments left ankle fusion Strength Upper Extremity Strength Assessment Within Functional Limits Lower Extremity Strength Assessment Bilaterally Impaired Hip 4/5 Knee 5/5 Ankle 4/5 Coordination Assessment Gross Coordination Gross Coordination WNL Sensation Assessment Sensation Gross Sensation Right LE Impaired,Left LE Impaired Light Touch Impaired Comments Sensation Comments Impaired light touch sensation in bilateral LE's up to knee joint. M6 PT-IP Treatment Start: 12/19/18 08:12 Freq: NEEDED Status: Active Protocol: Document 12/20/18 09:57 DLM (Rec: 12/20/18 11:09 DLM [id number]) Physical Therapy Treatment Education Education Provided Precautions,Safety Equipment Issued Equipment Type and Company verbal order received for FWW for home Other Treatments Other Treatment Performed he needed a lot of encouragement to participate in therapy this AM, he wanted to stay in bed and sleep, he reports he spends a lot of time in bed at home, noted garbled speech that makes him more difficult to understand M7 PT-IP Assessment and Plan Start: 12/19/18 08:12 Freq: NEEDED Status: Active Protocol: Document 12/20/18 09:57 DLM (Rec: 12/20/18 11:09 DLM [id number]) PT Summary Assessment and Plan Summary Impairments Strength,Balance,Sensation,Bed Mobility,Transfers,Gait, Activity Tolerance Progress Towards Goals Progressing Toward Goals Assessment Summary Beto is sleeping this AM but able to arouse with conversation. He tolerated gait in the garay well with fWW . He has decreased insite into his current limitations or safety concerns. He verbalizes no fear of falling. He is pleasant with therapy and will follow instructions. His limited insight makes it difficult for him to value making changes to decrease his fall risks. He continues to need UE support for safer gait . Goals Bed Mobility Goal Independent Transfer Goal Independent Gait Goal Standby Assistance,Front Wheel Walker Gait Distance 150 Other Goals up/down 3 steps without railing SBA Days to Meet Goals 10 Frequency of Treatment Frequency Of Treatment Once a Day Treatment Plan Physical Therapy Treatment Plan Bed Mobility Training,Transfer Training,Gait Training, Therapeutic Exercise,Balance Retraining,Discharge Planning, Neuromuscular Re-ed, Coordination Retraining Other Recommendations and Next Treatment continue stair training, add Focus LE strengthening when pt willing Recommendations To Nursing Amount of Assist Needed 1 Person Assist Discharge Recommendations PT Discharge Recommendations Home,Home Health,SNF Rehab Other Discharge Recommendations pt does not want to go to SNF rehab, he is declining home health needs
--- NOTE | 2018-12-20 10:13 | CM.DPNOTE ---
Spoke with patient about today's discharge. He is agreeable to plan to discharge home. Since paracentisis will be done this am so the patient may not be ready for 1230 [place]. [place]. Pt. states he needs a ride to the [place] but he can arrange his transportation once he arrives on [address] to go home. Updated Ninfa about this plan as well as the need for welder apprentice arc to arrange for a [employer] taxi [place] foot passenger. Ninfa expressed concern about patients walking stability. States she felt he needs a walker for home use. Order made for PT to provide/arrange for FWW to go to patient for discharge home.
--- NOTE | 2018-12-20 10:21 | P.DS_ITS ---
History of Present Illness History of Present Illness Date Patient Seen: 12/20/18 Time Patient Seen: 10:21 Chief complaint: difficulty breathing, bloated, swollen legs Narrative: As per ANDREW Ramos: Beto Cruz is a 63 y.o. male with hypertension and what appears to be depression presented today for increased abdominal girth and shortness of breath. He is suspected of having liver ascites. Patient is a vague historian and per the ED and in my questioning does not remember if he is taking his medications. Stated his stomach blew up on Thursday of this week and that his umbilicus popped out. Describes having right sided intermittent needle like pain in his right chest which has since resolved. Endorses a history of strokes in the past that he was never seen for and informed the ED that he has never been told he has gall bladder disease. Denies current shortness of breath, abdominal pain, nausea or vomiting, dyurea or diarrhea. He states some of his medications cause constipation. He also endorses bilateral feet pain and swelling. Patient goes to the clinic on [address] and does not recall seeing anyone regularly there. Discharge Providers Provider Date of admission: 12/18/18 11:22 Discharge Date: 12/20/18 Primary care physician: Carlos Johnson MD Consults: 12/18/18 08:03 Consult to RECORDING STUDIO SETUP WORKER - Supervisor [place] Routine Comment: Alcohol dependence RECORDING STUDIO SETUP WORKER Consult: Substance Abuse Assess APS/CPS Crisis Referral 12/18/18 16:26 Consult to Physical Therapy Evaluate & Treat Comment: weakness, cirrhosis Physician Instructions: Evaluate and Treat 12/20/18 10:13 Consult to Home Health Routine Comment: D/C today 12-20-18 Reason For Exam: FWW for home use Discharge provider: Sanford De La Garza DO Summary Hospital Course Discharge Diagnosis: 1. Acute decompensated alcoholic liver cirrhosis with ma ssive ascites, present on admission. Active. 2. Acute hypokalemia, present on admission. Resolved. 3. Hypertension, chronic and uncontrolled, present on admission. Stable. 4. Depression, chronic, present on admission. Stable. 5. Peripheral neuropathy, secondary to alcohol use, present on admission. Stable. 6. Elevated blood glucose. Hospital Course: Beto Cruz is a 63-year-old male with a past medical history significant for hypertension, depression, peripheral neuropathy and liver cirrhosis who presented for massive ascites and shortness of breath. 1. Acute decompensated alcoholic liver cirrhosis with massive ascites, present o n admission. Active. -Patient presented with third spacing with massive ascites, peripheral edema and shortness of breath. -Liver function impaired with INR 1.4 and albumin 2.3. Platelets low normal at 161. Patient denies history of previous ascites or hepatic encephalopathy. Patient reports significant rectal bleeding recently possibly due to varices? MELD decreased from initial 14 to 12. Child Valadez Class C. -Previous CT abdomen and pelvis with contrast in 12/2017 demonstrated nodular hepatic contour compatible with cirrhosis. -Abdominal ultrasound demonstrated moderate amount of upper abdominal ascites. -Echocardiogram unremarkable and demonstrated normal LV size and function with EF 60-65%, no focal wall motion abnormalities, normal diastolic function, RVSP 23 mmHg, left atrium is borderline dilated, right atrium is mildly dilated, no significant valvular heart disease, and aortic root is normal size. -Alcohol level normal. Patient reports his last drink was a beer he had 4 days ago. He reports he plans to abstain from alcohol. -Ordered acute hepatitis panel which is a send out and pending. Patient has history of previous IV drug use. -Discontinued buproprion and duloxetine due to hepatotoxicity. -Continue strict I&O and daily weights with diuresis. Net -2 L. -Continue low-sodium diet less than 2 g daily and fluid restriction of 1.5 L. -Received furosemide 40 mg IV x1 in ED. Continue diuresis and plan for paracentesis tomorrow which is unable to be performed on the weekends unless emergent. Discontinued furosemide 40 mg IV twice daily which he received for 2 days. Started 2:1 spironolactone 100 mg daily and furosemide 40 mg daily to treat ascites and will need to be titrated to effect as an outpatient. -Patient underwent abdominal paracentesis, fluid studies demonstrated SAAG >1.1 with low total protein consistent ascites being secondary to cirrhosis, cell count not diagnostic of peritonitis. Total fluid removed was 6 L of clear yellow fluid. -Recommended outpatient referral to hepatology for further evaluation and treatm ent. 2. Acute hypokalemia, present on admission. Active. -Initial potassium 3.6. Potassium trended down to 3.3 with diuresis. Ordered potassium chloride 40 mEq twice daily with meals while receiving IV diuresis. -Started spironolactone as above which is potassium sparing. Potassium improved after spironolactone. 3. Hypertension, chronic and uncontrolled, present on admission. Stable. -Patient initially significantly hypertensive in ED with blood pressure 193/105 and received nitropaste with improvement. This improved with inpatient management and patient was discharged on a stable regimen. -Continue home isosorbide mononitrate 30 mg daily, lisinopril 40 mg daily, and metoprolol succinate 100 mg daily. -Started and plan to continue 2:1 spironolactone and furosemide to treat ascites as above. -Discontinued verapamil 120 mg daily as blood pressure is controlled with the above medications. 4. Depression, chronic, present on admission. Stable. -Patient previously on bupropion and duloxetine which are hepatotoxic, contraindicated with hepatic impairment and have been discontinued indefinitely. 5. Peripheral neuropathy, secondary to alcohol use, present on admission. Stable. -Continue gabapentin 300 mg twice daily. Discontinued topiramate due to decreased clearance in hepatic impairment. -Ordered physical and occupational therapy evaluation treatment, pending. 6. Elevated blood glucose. -Hemoglobin A1c 4.6%v Time Spent with Patient Time spent: Greater than 30 minutes Exam Vital Signs (past 8 hours): - 12/20/18 05:25 12/20/18 07:40 12/20/18 08:21 Temperature 98.3 F 98.3 F Pulse Rate 68 65 68 Respiratory Rate 16 17 Blood Pressure 133/68 141/60 H 141/60 H Pulse Oximetry 95 96 12/20/18 08:43 Temperature Pulse Rate Respiratory Rate Blood Pressure Pulse Oximetry 96 Oxygen Delivery Method Room Air Oxygen Flow Rate 0 Narrative Exam Narrative: GENERAL APPEARANCE: Well developed, well nourished, in no acute distress. SKIN: Inspection of the skin reveals no rashes, ulcerations or petechiae. HEENT: The sclerae were anicteric and conjunctivae were pink and moist. Extraocular movements were intact and pupils were equal, round with normal accommodation. External inspection of the ears and nose showed no scars, lesions, or masses. Lips, teeth, and gums showed normal mucosa. The oral mucosa, hard and soft palate, tongue and posterior pharynx were unremarkable. NECK: Supple and symmetric. There was no thyroid enlargement, and no tenderness, or masses were felt. CHEST: Normal AP diameter and normal contour without any kyphoscoliosis. LUNGS: Auscultation of the lungs revealed no wheezes, rhonchi, or rales. CARDIOVASCULAR: There was a regular rate and rhythm without any murmurs, gallops, rubs. Peripheral pulses were 2+ and symmetric. ABDOMEN: Distended with tense ascites. MUSCULOSKELETAL: There was no tenderness or effusions noted. Muscle strength and tone were normal. EXTREMITIES: No cyanosis, clubbing. Mild Lower extremity edema. NEUROLOGIC: Alert and oriented x 3. Normal affect. Strength is +5/5 in the Upper Extremities and Lower Extremities Bilaterally. Sensation to touch was normal. Objective Labs Result Diagrams: 12/19/18 05:58 12/20/18 06:22 Labs: Laboratory Results - last 24 hr 12/20/18 12/20/18 06:22 06:22 PT 16.0 H INR 1.4 H Sodium 139 Potassium 3.7 Chloride 107 Carbon Dioxide 26 BUN 12 Creatinine 0.70 Estimated GFR > 60.0 BUN/Creatinine Ratio 17.1 Glucose 91 Calcium 8.1 L Magnesium 1.7 Total Bilirubin 1.4 H AST 65 H ALT 28 Alkaline Phosphatase 122 Total Protein 6.8 Albumin 2.7 L Globulin 4.1 Albumin/Globulin Ratio 0.7 L Discharge Plan Discharge Plan Patient Disposition: Home Discharge comment: Your admitted to the hospital for abdominal distension. You have ascites which is due to cirrhosis of your liver. Analysis of this fluid showed that you did not have an infection and confirmed that the fluid was due to cirrhosis. You had 6 L of fluid drained on December 20. You were started on diuretics and given your cirrhosis some medications were discontinued. You should follow up with your primary care provider and potentially a liver specialist upon discharge. Discharge Med Rec/Prescriptions Prescriptions: New furosemide 40 mg Tablet 40 mg PO DAILY Qty: 30 RF: 0 spironolactone 50 mg Tablet 100 mg PO DAILY Qty: 60 RF: 0 Continued isosorbide mononitrate 30 MG tablet extended release 24 hr 30 mg PO QAM Qty: 90 RF: 1 gabapentin [Neurontin] 300 MG capsule 300 mg PO BID Qty: 180 RF: 0 metoprolol succinate 100 MG tablet extended release 24 hr 100 mg PO DAILY RF: 0 lisinopril 40 MG tablet 40 mg PO DAILY RF: 0 Discontinued verapamil 120 mg tablet extended release 120 mg PO DAILY RF: 0 duloxetine 30 mg capsule,delayed release(DR/EC) 30 mg PO DAILY RF: 0 topiramate 25 mg tablet 25 mg PO BID RF: 0 bupropion HCl 100 mg tablet 100 mg PO DAILY RF: 0 Follow up/Referrals: Carlos Johnson MD [Primary Care Provider] - 3-5 Days Provider Discharge Instructions Diet comment: low sodium less than 2 g or 2000 mg per day, fluid restriction 1 .5L Activity: As tolerated Visit Report/Discharge Packet Instructions: DI for Cirrhosis, Fluid Restricted Diet, Low-Sodium Diet Discharge Data Primary Care Provider: Carlos Johnson Quality VTE Deep Vein Thrombosis/Pulmonary Embolism Present on Admission: No
[2018-12-20] MEDS: LIDOCAINE 2% INJ MDV 20 ML (10:40)
--- NOTE | 2018-12-20 10:40 | PC.NURSE ---
Addendum entered by Ninfa Montgomery R.N. 12/20/18 14:43: albumin infusion complete. patient tolerated well. vss. iv dc'd intact. tele dc'd. called scripts in to [facility] and spoke with Mikayla. reviewed all dc instructions carefully with patient, including med changes and last doses. patient states he will call to arrange his f/u appt. he reports he [place] arranged [place] 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 priority boarding pass provided. Addendum entered by Ninfa Montgomery R.N. 12/20/18 11:40: TOTAL VOLUME OF 5800 CC'S OF PERITONEAL FLUID REMOVED. PATIENT TOLERATED WELL. VSS. DISCONTINUED AND PLACED BANDAID DRSG. Original Note: PARACENTESIS: PATIENT HAS BEEN MARKED BY U/S. DR. BUSTOS AT BEDSIDE PREPARING FOR PROCEDURE. VSS WILL BE DOCUMENTED IN CHART. BASELINE VS JUST DOCUMENTED.
--- NOTE | 2018-12-20 11:04 | P.PCN_ITS ---
Procedures Date/Time Date of procedure: 12/20/18 Time of procedure: 11:00 Paracentesis Time out performed: Yes Indication: Ascites Procedure: therapeutic paracentesis Location: RLQ Local anesthetic used: lidocaine 1% Amount of anesthesia used (ml): 3 Bedside ultrasound used: yes, Ascites confirmed and location marked Preparation: sterile prep and drape Amount of fluid obtained (ml): 6,000 Fluid: clear and sent to lab for analysis Size of needle used: 16 Post procedure exam: awake, alert, normal BP and normal HR Patient tolerated procedure: well and no complications Complications: none Additional comments: Prior to the procedure formal consent was obtained from the patient after discussion of risks and benefits of the procedure, and allowing the patient to ask any questions. Ultrasound was used to find a suitable pocket, and the site was marked. A time-out was performed. The site was then p repped and draped in usual sterile fashion, and a 16 gauge needle was inserted with return of cloudy yellow fluid. A total of approximately 6L was obtained before drainage stopped. 25 g of albumin will be given following with procedure. There was no bleeding and the patient tolerated the procedure well. There were no further complications. Fluid was sent to the lab for analysis.
[2018-12-20 11:34] LABS: Albumin Body Fluid < 1.0 g/dL; Glucose Body Fluid 105 mg/dL; Total Protein Body Fluid < 2.0 g/dL
[2018-12-20] MEDS: ALBUMIN HUMAN 25 GM/100 ML VIAL IV (12:09)
[2018-12-20 12:22] LABS: Body Fluid Tot Nucleated Cells 252 /uL
[2018-12-20 12:24] LABS: Body Fluid Red Blood Cells 317 /uL
[2018-12-20 13:06] LABS: Body Fluid Appearance SLIGHTLY CLOUDY; Body Fluid Clotted? NO CLOTS PRESENT; Body Fluid Color YELLOW; Eosinophils Body Fluid 0 %; Mononuclear WBC Body Fluid 83 %; Other Cells Body Fluid 0 %; Polynuclear WBC Body Fluid 17 %
--- NOTE | 2018-12-20 14:00 | PT-IP ANOTE ---
Pt provided with a FWW for home use from [employer]. Adjusted height of FWW and applied plastic glide caps. Pt educated in how to fold the walker to get it into the car.
--- NOTE | 2018-12-20 16:12 | PC.NURSE ---
1640: Patient assisted into wheelchair, assisted downstairs to catch cab [employer] [place] All belongings, DC instructions, paperwork, priority ferry pass and his own walker sent with him. Patient expressed no needs or concerns prior to DC.
[2018-12-22 07:27] LABS: Hepatitis A Antibody IgM NONREACTIVE; Hepatitis B Core Antibody IgM NONREACTIVE; Hepatitis B Surface Antigen NONREACTIVE
[2018-12-22 12:25] LABS: Hepatitis C Antibody REACTIVE
== END 2018-12-20 15:40 | disposition home or self-care (01) | DRG 434 ==
LOC: ED 18:22 → AC 18:32
PROVIDERS: Nurse Practitioner Family; Admitting Provider Internal Medicine; Emergency Provider Emergency Medicine; Family Provider Family Medicine; PCP Family Medicine; Visit Provider Internal Medicine
DX: K70.31 Alcoholic cirrhosis of liver with ascites (principal); F10.20 Alcohol dependence, uncomplicated; I10 Essential (primary) hypertension; G62.1 Alcoholic polyneuropathy; E87.6 Hypokalemia; F17.210 Nicotine dependence, cigarettes, uncomplicated; R60.0 Localized edema; F32.9 Major depressive disorder, single episode, unspecified
CPT/HCPCS: 36415; 71046; 76705; 80053; 80061; 80074; 82042; 82140; 82550; 82945; 83036; 83690; 83735; 83880; 84145; 84157; 84484; 85025; 85610; 87070; 87075; 87205; 89051; 93005; 93010; 93306; 94760; 96374; 97116; 97162; 99283; 99285; 99406; G0378; J1650; J1885; J1940; P9041; Q9957